=== PATIENT | female | born 1950 | race Caucasian/White ===

== ENCOUNTER → 2016-06-15 14:44 | Outpatient (CLI) | payer MEDICARE ==
[2016-05-23 09:51] VITALS: BMI 27.1
[~2016-06-15 14:44] MED LIST: BAYER CHEWABLE81 MG PO; BRILINTA90 MG PO; COMBIVENT RESPIM4 GM INH; FUROSEMIDE20 MG PO; HYDROCODON-ACE1 EAC6 PO; HYDROCODONE-APA1 TAB PO; IMDUR30 MG PO; K-DUR20 MEQ PO; LOPRESSOR25 MG PO; NORCO 10/325 TA1 TA1 PO; PLAVIX75 MG PO; PLETAL100 MG PO
== END | disposition home or self-care (01) ==
LOC: D.CT 14:30
DX: I73.9 Peripheral vascular disease, unspecified (principal); R60.0 Localized edema

== ENCOUNTER 2016-06-22 12:12 | Outpatient (CLI) | payer MEDICARE ==
[~2016-06-22] VITALS: Ht 157.5 cm; Wt 58.6 kg
[2016-06-22 15:42] VITALS: BP 101/46; Ht 157.5 cm; Wt 58.6 kg
--- NOTE | 2016-06-22 15:46 | NUR ---
1543 IV STARTED X 1 STICK BY BINA HERRMANN RN WITH 20 G TO RIGHT FOREARM. 1545 PRBC'S UNIT #1 STARTED VIA PUMP AFTER BEING CHECKED X 2 NURSES. PREMEDS HAVE BEEN GIVEN. PT INSTRUCTED ON SIGNS OF TRANSFUSION REACTION TO REPORT.
--- NOTE | 2016-06-22 16:46 | NUR ---
1615 RESP EVEN AND NONLABORED. BLOOD INFUSING VIA RT ARM NO REDNESS OR SWELLING,NO S/S OF BLOOD REACTIONS NOTED.
--- NOTE | 2016-06-22 16:51 | NUR ---
1650 SUPPER TRAY SERVED.
--- NOTE | 2016-06-22 17:50 | NUR ---
1715 BLOOD INFUSING WITHOUT S/S OF BLOOD REACTIONS. ROOM WARMED AND BLANKET APPLIED.
--- NOTE | 2016-06-22 19:18 | NUR ---
1810 V/S TAKEN BLOOD INFUSING WITHOUT S/S OF BLOOD REACTIONS NOTED. UP AND VOIDED.
--- NOTE | 2016-06-22 19:19 | NUR ---
1810 IN ROOM IV BEEPED,BLOOD COMPLETED AND FLUSHED WITH NORMAL SALINE.
--- NOTE | 2016-06-22 19:20 | NUR ---
2ND UNIT OF PRBCS HUNG AND CHECKED BY 2 NURSES. NEW BLOOD TUBING HUNG. BLOOD STARTED AT 75 CC/HR RT ARM NO REDNESS OR SWELLING.
--- NOTE | 2016-06-22 19:58 | NUR ---
1935 BLOD INFUSING WITHOUT S/S OF BLOOD REACTIONS NOTED.
--- NOTE | 2016-06-22 19:58 | NUR ---
1954 V/S STABLE 99.2 TEMP. RT ARM IV NO S/S OF BLOOD REACTIONS NOTED. UP TO THE BR AND VOIDED,NO SOB TOLERATING BLOOD.
--- NOTE | 2016-06-22 20:06 | NUR ---
2005 BLOOD INFUSING NO S/S OF BLOOD REACTION. REPORT TO JUVENTINO BERMUDEZ R.N. TO ROOM VIA W/C 1525 ALERT ORIENTED AND TALKATIVE.PATIENT TO FINISH LAST UNIT OF BLOOD AND STAY 1 HOUR AFTER AND BE DISCHARGED TO HOME.
--- NOTE | 2016-06-22 20:25 | NUR ---
RVCD PT FROM Caden BERMUDEZ RN FROM OUTPATIENT SERVICES. PT HAS PRBC TRANSFUSING VIA PUMP @ 125 ML/HR WITH APPROX 120 ML LEFT IN BAG. PT HAS NO S/S OF REACTION TO TRANSFUSION AT THIS TIME. PT REQUESTS TO REMAIN IN STREET CLOTHES. D/C PAPERS SIGNED PREVIOUS TO ARRIVAL ON L&D UNIT. PT DENIES NEEDS AT THIS TIME. BED LOW, CL IN REACH.
--- NOTE | 2016-06-22 21:05 | NUR ---
BLOOD TRANSFUSION COMPLETE. IV D/C'D AT THIS TIME. D/C PAPERS SIGNED & WITNESSED PER THIS RN. PT TO BATHROOM AND THEN BACK TO BED TO AWAIT D/C. DENIES NEEDS AT THIS TIME.
--- NOTE | 2016-06-22 21:20 | NUR ---
TO ROOM TO CHECK ON PT AND ROOM NOTED TO BE EMPTY. PT OFF UNIT UNANOUNCED TO STAFF.
== END 2016-06-22 21:15 | disposition home or self-care (01) ==
LOC: D.OPS 12:12 → D.LD 20:05 → D.OPS 21:15
DX: D50.9 Iron deficiency anemia, unspecified (principal); I25.10 Atherosclerotic heart disease of native coronary artery without angina pectoris; I10 Essential (primary) hypertension; J43.9 Emphysema, unspecified

== ENCOUNTER → 2016-08-09 14:09 | Outpatient (CLI) | payer MEDICARE ==
[2016-06-22 15:42] VITALS: BMI 23.6
[2016-08-09 17:52] LABS: ERYTHROCYTE SEDIMENTATION RATE 23 mm/hr (0-30)
[2016-08-11 08:23] LABS: IMMUNOGLOBULIN A 910 mg/dL (87-352); IMMUNOGLOBULIN G 1847 mg/dL (700-1600); IMMUNOGLOBULIN M 21 mg/dL (26-217)
[2016-08-11 10:20] LABS: IMMUNOGLOBULIN E 344 IU/mL (0-100)
[2016-08-11 13:20] LABS: ANA REFLEX - DIRECT Negative (Negative)
[2016-08-15 17:11] LABS: ANCA - ANTIMYELOPEROXIDASE <9.0 U/mL (0.0-9.0); ANCA - ANTIPROTEINASE 3 <3.5 U/mL (0.0-3.5); ANCA - ATYPICAL <1:20 titer (Neg:<1:20); ANCA - CYTOPLASMIC <1:20 titer (Neg:<1:20); ANCA - PERINUCLEAR <1:20 titer (Neg:<1:20)
== END | disposition home or self-care (01) ==
LOC: D.RT 08-04 14:00 → D.LAB 08-04 15:00 → D.CT 08-04 15:30 → D.RT 14:00
PROVIDERS: Internal Medicine Pulmonary Disease
DX: I50.9 Heart failure, unspecified (principal)

== ENCOUNTER 2016-08-30 13:54 | Outpatient (CLI) | payer MEDICARE ==
[~2016-08-30] VITALS: Ht 157.5 cm; Wt 58.6 kg
[2016-08-30 18:00] VITALS: BP 101/61; Ht 157.5 cm; Wt 58.6 kg
--- NOTE | 2016-08-30 18:03 | NUR ---
1700-POX 80% ON ROOM AIR, PT DENIES USING ANY O2 AT HOME AND STATED THAT SHE IS SOB AND THAT IS WHY SHE IS HERE TO GET BLOOD. PUT PATIENT ON 2L O2 VIA NC AND POX INCREASED TO 92-93% PT STATES THAT IS WHAT SHE STAYS AROUND. 1705-20 GAUGE IV STARTED IN RIGHT ARM X 1 STICK SECURED WITH TEGADERM AND WITHOUT DIFFICULTIES. 1710-PRBC UNIT #1 STARTED AND CHECKED WITH 2 RN'S 1725-PT TOLERATING BLOOD GOOD. REG DINNER TRAY SERVED AND PT DENIES ANY NEEDS AT THIS TIME. PT CALL LIGHT IN REACH
--- NOTE | 2016-08-30 18:08 | NUR ---
1755-PT DOING WELL, POX 94% ON 2L. INCREASED BLOOD TRANSFUSION TO 125CC/HR PT DOING WELL
--- NOTE | 2016-08-30 19:15 | NUR ---
1909-REPORT GIVEN TO JOSÉ MIGUEL ON MED 2. PT TRANSFERED TO 2103 VIA WHEELCHAIR IN STABLE CONDITION
--- NOTE | 2016-08-30 20:22 | NUR ---
PT RECEIVED FROM OUTPT VIA WHEELCHAIR AWAKE, ALERT, ORIENTED, WITH BLOOD TRANSFUSING. PT AMBULATED AND TRANSFERRED WITH MINIMAL ASSIST TO THE BED FROM THE WHEELCHAIR. PT DENIES ANY ACUTE NEEDS, IS IN NO ACUTE DISTRESS, AND STATES THAT SHE IS TOLERATING THE PRBC TRANSFUSION WELL. IV LASIX 40MG GIVEN ORDERED IN BETWEEN UNITS, 2ND UNIT HAS BEEN STARTED. V/S REMAIN STABLE. WILL CONTINUE TO MONITOR CLOSELY.
--- NOTE | 2016-08-30 23:26 | NUR ---
2 UNIT PRBC'S COMPLETE. D/C INSTRUCTIONS REVIEWED WITH PT. IV REMOVED WITH CATH TIP INTACT. PT IN NO ACUTE DISTRESS, STATES SHE HAS TOLERATED THE TRANSFUSION WELL, AND DENIES ANY OTHER NEEDS.
--- NOTE | 2016-08-30 23:48 | NUR ---
PT TAKEN TO ER EXIT VIA WHEELCHAIR WHERE SHE AMBULATED TO HER VEHICLE WITHOUT DIFFICULTY. PT VERBALLY DENIED ANY DIZZINESS, LIGHTHEADEDNESS, NAUSEA, CHEST PAIN, SHORTNESS OF BREATH OR ANY OTHER ISSUES.
== END 2016-08-30 23:50 | disposition home or self-care (01) ==
LOC: D.OPS 13:54 → D.M2 19:20 → D.OPS 23:50
DX: D50.0 Iron deficiency anemia secondary to blood loss (chronic) (principal); I50.9 Heart failure, unspecified; R06.00 Dyspnea, unspecified

== ENCOUNTER → 2016-10-12 08:45 | Outpatient (CLI) | payer MEDICARE ==
[2016-08-30 18:00] VITALS: BMI 23.6
--- NOTE | 2016-10-13 16:36 | EC ---
PATIENT:TIMBO HOPE DATE OF SERVICE: 10/12/16 SEX: F MEDICAL RECORD: [id number] DATE OF : [birth year] LOCATION:[facility] AGE OF PATIENT: 65 ADMISSION DATE: 10/12/16 REFERRING PHYSICIAN: INTERPRETING PHYSICIAN: ADY LOPEZ MD ECHOCARDIOGRAM REPORT ECHO CHARGES 4 ECHO COMPLETE CLINICAL DIAGNOSIS: CHF HX CAD/CABG/PVD ECHOCARDIOGRAPHIC MEASUREMENTS (adult normal given) AC root (d.<3.7cm) 3.1 LV Septum d (<1.2 cm> 1.1 Valve Excursion 1.4 LV Septum (systole) 1.4 Left Atria (s.<4.0cm> 4.1 LVPW d(<1.2cm) 1.5 RV (d.<2.3cm) 4.0 LVPW (sytole) 1.7 LV diastole(<5.6CM) 5.8 MV E-F(>70mm/sec) LV systole 4.5 LVOT Diameter 1.4 MV exc.(>10mm) 1.2 Est.ejection fraction (50-75%) Pericardial Effusion N DOPPLER: LVIT A 118 E 145 LA RVSP 49 LVOT 137 AOP1/2T Asc. Ao 329 RVOT 126 RA PA 169 AV Gradient Peak 43.22 AV Mean 18.32 AV Area 1.0 MV Gradient Peak 13.79 MV Mean 5.67 MV Area COMMENTS: Housekeeping Assistant: Hayden JOLLY Traffic Law Attorney:Hayden Jackson TAPE# PACS DATE OF SERVICE: 10/12/2016 FINDINGS: 1. Left ventricular chamber size is within normal limits. Left ventricular systolic function is normal. Overall ejection fraction estimated at ____. 2. Left atrium is enlarged at 4.1 cm. Right atrium and right ventricular chamber sizes are as well mildly dilated. 3. Valvular structures: Aortic valve demonstrates moderate calcific aortic stenosis. Valve area calculates to 1.0 cm-squared and there is a gradient of 43 mm across the valve. The remaining valvular structures have normal structure ECHOCARDIOGRAM REPORT [id number] TIMBO HOPE and motion. 4. Doppler interrogation elsewise reveals moderate mitral regurgitation, mild tricuspid regurgitation. No other valvular insufficiency or stenosis; however, pulmonary systolic pressure is elevated estimated at 49 mmHg. 5. No evidence of pericardial effusion or left ventricular thrombus. TRANSINT:[id number] Voice Confirmation ID: [id number] DOCUMENT ID: [id number] ADY LOPEZ MD at 1636 CC: [id number] DICTATION DATE: 10/12/16 162 REVIEW APPRAISER: 10/13/16 0213 DEP CLI 10/12/16 [place] [id number] [place] [id number]
== END | disposition home or self-care (01) ==
LOC: D.ECHO 08:45
DX: I50.9 Heart failure, unspecified (principal)

== ENCOUNTER 2017-04-18 13:48 | Inpatient (IN) | payer MEDICARE ==
[~2017-04-18] VITALS: Ht 157.5 cm; Wt 66.4 kg
--- NOTE | ~2017-04-18 | HEMODYNAMI ---
PATIENT:TIMBO HOPE MEDICAL RECORD: [id number] : [birth year] LOCATION:[facility] [address] [facility]# [id number] ADMISSION DATE: 04/18/17 Generatedon:04/20/201717:01 Patient name: TIMBO HOPE Patient #: [id number] SSN: : 1950 Date of study: 04/20/2017 Page: Of Hemodynamic Procedure Report Patient Data Patient Demographics Procedure consent was obtained First Name: TIMBO Gender: Female Last Name: JAYY : 1950 [facility] Initial: LITZY Age: 66 year(s) Patient #: [id number] Race: Unknown Additional ID: [id number] Contact details [address]: [address] [place] [address] State: [place] City: [place] Zip code: [address] Past Medical History Allergies Allergen Reaction Date Comments Reported Other allergy 04/20/2017 SULFA, ROSUVASTATIN, CEPHALEXIN MONOHYDRATE, PCN Other allergy 04/20/2017 SULFA, ROSUVASTATIN,PCN, CEPHALEXIN MONOHYDRATE Admission Admission Data Admission Date: 04/18/2017 Admission Time: 13:48 Room #: [facility]8 Weight (lbs.): 145.51 Weight (kg.): 66 Lab Results Lab Result Date: 04/20/2017 Lab Result Time: 0:00 Biochemistry Name Units Result Min Max BUN mg/dl 15 --(--*-)-- 7 18 Creatinine mg/dl 0.9 --(-*--)-- 0.6 1.3 CBC Name Units Result Min Max Hemoglobin g/dl 10 *-(----)-- 13.5 17.5 Procedure Procedure Types Cath Procedure Diagnostic Procedure [facility] w/Coronaries w/Grafts FFR/IVUS Intra-Coronary IVUS Initial PCI Procedure AMI/SVG/SERVICE LEARNING COORDINATOR PTCA or Stent SVG-BMS/LUISA Initial Miscellaneous Procedures Moderate Sedation up to 30 minutes Procedure Description Procedure Date Procedure Date: 04/20/2017 Procedure Start Time: 16:34 Procedure End Time: 16:58 Procedure Staff Name Function Ryan Braun MD Performing Physician Hipolito Burgess RT Monitor Nilsa Whitt RT Scrub Jenn Curtis RN Nurse Timur Rudolph RN Nurse Procedure Data Cath Procedure Fluoroscopy Diagnostic fluoroscopy Total fluoroscopy Time: 5.3 time: 5.3 min min Diagnostic fluoroscopy Total fluoroscopy dose: 475 dose: 475 mGy mGy Contrast Material Contrast Material Type Amount (ml) Isovue 300 124 Entry Location Entry Primary Successful Side Size Upsize Upsize Entry Closure Succes sful Closure Location (Fr) 1 (Fr) 2 (Fr) Remarks Device Remarks Femoral Right 5 Fr 6 Fr Exoseal artery Short Estimated blood loss: 10 ml Diagnostic catheters Device Type Used For End Catheter Placement Cordis 5Fr Pigtail Procedure Catheter (MP) Cordis 5Fr JL 4.0 Procedure Catheter (MP) Cordis 5Fr 3DRC Catheter Procedure (MP) Diagnostic Infinity 5Fr Procedure AR 2 MOD catheter Procedure Complications No complications Procedure Medications Medication Administration Route Dosage 0.9% NaCl I.V. 100 ml/hr Oxygen NC 2 l/min Lidocaine 2% added to field 20 Heparin Flush Bag added to field 2 bags (1000units/500ml NS) Fentanyl I.V. 50 mcg Versed I.V. 1 mg Versed I.V. 1 mg Fentanyl I.V. 50 mcg Fentanyl I.V. 50 mcg Versed I.V. 1 mg Heparin Bolus I.V. 4000 units Integrilin (Bolus I.V. 6.2 ml 2mg/ml) Cardene I.C. 300 mcg Plavix P.O. 600 mg Hemodynamics Rest HGB: 10 (g/dl) Heart Rate: 80 (bpm) Snapshots Pre Cath Intra NCS Post Cath Vital Signs Time Heart Resp SPO2 etCO2 NIBP Rhythm Pain Sedation Rate (ipm) (%) (mmHg) (mmHg) Status Level (bpm) 16:19:10 105 18 98 0 109/53(70) NSR 0 (11) 10(A) , No pain 16:23:46 89 14 98 9.6 101/42(65) NSR 0 (11) 10(A) , No pain 16:28:23 92 16 93 100/46(69) NSR 0 (11) 10(A) , No pain 16:33:01 91 14 93 35 86/39(69) NSR 0 (11) 10(A) , No pain 16:37:38 93 14 94 31.2 98/43(72) NSR 0 (11) 10(A) , No pain 16:42:14 92 14 94 20.1 103/45(74) NSR 0 (11) 9(A) , No pain 16:46:53 92 13 93 29 104/44(77) NSR 0 (11) 10(A) , No pain 16:51:27 83 14 94 29.8 94/50(70) NSR 0 (11) 10(A) , No pain Medications Time Medication Route Dose Verified Delivered Reason Notes Effectiveness by by 16:05:23 0.9% NaCl I.V. 100 Ryan Jenn used for ml/hr Kade Curtis RN procedure 16:05:40 Oxygen NC 2 Ryan Jenn used for l/min Kade Curtis RN procedure 16:05:54 Lidocaine 2% added 20ml Ryan Ryan for local to vial Kade Braun MD anesthetic field 16:06:14 Heparin Flush added 2 bags Ryan Ryan used for Bag to Kade Braun MD procedure (1000units/500ml field NS) 16:32:32 Fentanyl I.V. 50 mcg Ryan Jenn for sedation Kade Curits RN 16:32:43 Versed I.V. 1 mg Ryan Jenn for sedation Kade Curtis RN 16:34:37 Versed I.V. 1 mg Ryan Jenn for sedation Kade Curtis RN 16:34:48 Fentanyl I.V. 50 mcg Ryan Jenn for sedation Kade Curtis RN 16:41:07 Fentanyl I.V. 50 mcg Ryan Jenn for sedation Kade Curtis RN 16:41:15 Versed I.V. 1 mg Ryan Jenn for sedation Kade Curtis RN 16:46:13 Heparin Bolus I.V. 4000 Ryan Jenn for verif ied units Kade Curtis RN anticoagulation by 16:48:53 Integrilin I.V. 6.2 ml Ryan Jenn for waste d (Bolus 2mg/ml) Kade Curtis RN antiplatelet 3.8 ml therapy of viAl 16:49:28 Cardene I.C. 300mcg Ryan Davis for verif ied Kade Braun MD vasodilation by 16:54:44 Plavix P.O. 600 mg Ryan Barajas Per physician Kade Curtis cylinder devalver Log Time Note 15:50:52 Hipolito Croftley RT(R) sent for patient. Start room use. 16:04:14 Patient Weight : 145.51 lbs 16:04:53 Time tracking: Regular hours 16:04:57 Plan of Care:Hemodynamics will remain stable., Cardiac rhythm will remain stable., Comfort level will be maintained., Respiratory function will remain adequate., Patient/ family verbilizes understanding of procedure., Procedure tolerated without complication., Recovers from procedure without complications.. 16:05:23 0.9% NaCl 100 ml/hr I.V. was administered by Jenn Curtis RN; used for procedure; 16:05:40 Oxygen 2 l/min NC was administered by Jenn Curtis RN; used for procedure; 16:05:45 Lab results completed and on chart. 16:05:54 Lidocaine 2% 20ml vial added to field was administered by Ryan Braun MD; for local anesthetic; 16:06:14 Heparin Flush Bag (1000units/500ml NS) 2 bags added to field was administered by Ryan Braun MD; used for procedure; 16:08:10 Patient allergic to Other allergySULFA, ROSUVASTATIN,PCN, CEPHALEXIN MONOHYDRATE 16:12:43 Patient received from Med II to CCL 1 Alert and oriented. Tansferred to table in Supine position. 16:12:49 Warm blankets applied, and luz hugger turned on for patient comfort. 16:12:49 Correct patient and procedure confirmed by team. 16:12:50 ECG and BP/O2 sat monitors applied to patient. 16:12:51 Signed procedure consent form obtained from patient. 16:18:19 Vital chart was started 16:22:32 Baseline sample Acquired. 16:22:36 Rhythm: sinus rhythm 16:22:39 Full Disclosure recording started 16:22:43 H&P Date Dictated: 04/20/2017 Within 30 days and on chart.. 16:22:43 Pre-procedure instructions explained to patient. 16:22:44 Pre-op teaching completed and patient verbalized understanding. 16:22:46 Family in patients room. 16:22:47 Patient NPO since Midnight. 16:22:50 Is the patient allergic to Iodine/contrast media? No. 16:22:52 Is patient on blood thinner?No 16:22:54 Patient diabetic? No. 16:22:57 Patient not . Patient is over age 54. 16:22:59 Previous problem with sedation/anesthesia? No ? 16:23:00 Snore? Yes 16:23:01 Sleep apnea? No 16:23:02 Deviated septum? No 16:23:02 Opens mouth fully? Yes 16:23:03 Sticks out tongue? Yes 16:23:06 Airway obstruction? No ? 16:23:10 Dentures? Yes IN 16:23:24 Pre procedure: right dorsailis pedis pulse 1+ Palpable, but thready & weak; easily obliterated 16:23:28 Patient pain scale 0/10 ?. 16:23:35 IV patent on arrival in right hand with 0.9% NaCl at [facility]. 16:23:40 Right groin area was prepped with chlora-prep and draped in sterile fashion 16:23:41 Alarms reviewed by R. N. 16:23:42 Sharps counted by scrub and verified by R.N. 16:23:52 Use device set Femoral Dx 16:23:55 Tegaderm 4 x 4 opened to sterile field. 16:23:56 Acist Hand Control opened to sterile field. 16:23:56 Acist Manifold opened to sterile field. 16:23:57 Acist Syringe opened to sterile field. 16:23:58 Bag Decanter opened to sterile field. 16:23:58 Medline Cath Pack opened to sterile field. 16:24:04 Terumo 5Fr [place] Sheath opened to sterile field. 16:24:04 St Diego 260cm J .035 wire opened to sterile field. 16:24:06 Diagnostic Infinity 5Fr Multipack catheter opened to sterile field. 16:26:24 Cook 18G 7cm Percutaneous Entry needle opened to sterile field. 16:26:34 --------ALL STOP TIME OUT------ 16:26:35 Final Timeout: patient, procedure, and site verified with staff and physician. All members of the team are in agreement. 16:26:37 Right groin site verified by team. 16:26:40 Physical assessment completed. ASA score P 2 - A patient with mild systemic disease as per Ryan Braun MD. 16::44 Sedation plan: IV Moderate Sedation Medication:Versed, Fentanyl 16:32:32 Fentanyl 50 mcg I.V. was administered by Jenn Curtis RN; for sedation; 16:32:43 Versed 1 mg I.V. was administered by Jenn Curtis RN; for sedation; 16:34:07 Procedure started. 16:34:14 Local anesthetic to right femoral artery with Lidocaine 2% by Ryan Braun MD.INITIAL ACCESS ONLY 16:34:37 Versed 1 mg I.V. was administered by Jenn Curtis RN; for sedation; 16:34:47 A 5 Fr sheath was inserted into the Right Femoral artery 16:34:48 Fentanyl 50 mcg I.V. was administered by Jenn Curtis RN; for sedation; 16:35:09 A Cordis 5Fr Pigtail Catheter (MP) was advanced over the wire and used for Procedure. 16:36:02 LV angiography performed. 16:36:04 LV gram done using MORRIS 16:36:10 EF : 50 % 16:36:15 Injector settings: Ml/sec: 10, Volume: 20, 16:36:20 Catheter removed. 16:36:25 A Cordis 5Fr JL 4.0 Catheter (MP) was advanced over the wire and used for Procedure. 16:37:11 LCA closed. 16:37:27 Catheter removed. 16:37:32 A Cordis 5Fr 3DRC Catheter (MP) was advanced over the wire and used for Procedure. 16:38:25 BISHOP not grafted. 16:38:36 RCA closed. 16:38:40 Catheter removed. 16:38:45 A Diagnostic Infinity 5Fr AR 2 MOD catheter was advanced over the wire and used for Procedure. 16:39:56 SVG to LAD angiography performed. 16:40:12 Also a skip graft to CIRC. 16:41:07 Fentanyl 50 mcg I.V. was administered by Jenn Curtis RN; for sedation; 16:41:14 SVG to RCA angiography performed. 16:41:15 Versed 1 mg I.V. was administered by Jenn Curtis RN; for sedation; 16:41:31 Catheter removed. 16:41:44 Medtronic Launcher 6Fr AR 2.0 guide catheter opened to sterile field. 16:41:45 Terumo 6Fr [place] Sheath opened to sterile field. 16:41:54 Sheath upsized to a 6 Fr Short. 16:42:00 6 Fr AR 2 guide catheter was inserted over the wire 16:42:38 Guide advanced to get a better picture of the SVG to RCA. 16:44:30 SVG to RCA angiography performed. 16:44:57 Gould Pocket Change Card Choice PT Extra Support 182cm wire opened to sterile field. 16:44:58 Merit BasixCompak Inflation Kit opened to sterile field. 16:44:58 [place] [employer] [place] IVUS Catheter opened to sterile field. 16:45:13 Choice PT XS wire advanced. 16:46:13 Heparin Bolus 4000 units I.V. was administered by Jenn Curtis RN; for anticoagulation; verified by 16:46:28 Wire advanced across lesion. 16:46:49 IVUS catheter advanced over wire. 16:48:53 Integrilin (Bolus 2mg/ml) 6.2 ml I.V. was administered by Jenn Curtis RN; for antiplatelet therapy; wasted 3.8 ml of viAl 16:49:15 IVUS pass to the SVG to RCA lesion performed. 16:49:17 IVUS catheter removed over wire. 16:49:28 Cardene 300mcg I.C. was administered by Ryan Braun MD; for vasodilation; verified by 16:50:26 Inflation number: 1 A Medtronic Integrity Rx 4.0 x 22 stent was prepped and advanced across the Aorta Right -> Mid RCA, then inflated to 19 HINA for 0:10 (min:sec). 16:50:32 Stent catheter was removed intact over wire. 16:50:33 Wire removed. 16:50:33 Guide catheter removed. 16:50:54 Cordis 6Fr Exoseal opened to sterile field. 16:51:30 Sheath removed intact; hemostasis achieved with Exoseal to the Right Femoral artery. 16:51:38 Procedure ended.(Physican Out) 16:51:53 Fluoroscopy time 05.30 minutes. 16:51:57 Fluoroscopy dose: 475 mGy 16:51:57 Flurop Dose total: 475 16:52:05 Contrast amount:Isovue 300 124ml. 16:52:10 Sharps counted by scrub and verified by R.N. 16:52:11 Insertion/operative site no bleeding no hematoma. 16:52:21 Post-op/insertion site Right Femoral artery dressed using a 4 x 4 and Tegaderm. 16:52:23 Post Procedure Pulses reassessed and unchanged 16:52:25 Post-procedure physical assessment completed. ASA score P 2 - A patient with mild systemic disease as per Ryan Braun MD. 16:52:28 Post procedure rhythm: unchanged. 16:52:31 Estimated blood loss: 10 ml 16:52:33 Post procedure instruction explained to patient.Patient verbalizes understanding. 16:52:34 Patient needs reinforcement of post procedure teaching. 16:53:02 Procedure type changed to Cath procedure, Diagnostic procedure, LHC, LHC w/Coronaries w/Grafts, FFR/IVUS, Intra-Coronary IVUS Initial, PCI procedure, AMI/SVG/SERVICE LEARNING COORDINATOR PTCA or Stent, SVG-BMS/LUISA Initial, Miscellaneous Procedures, Moderate Sedation up to 30 minutes 16:53:07 Procedure Complication : No complications 16:54:44 Plavix 600 mg P.O. was administered by Jenn Curtis RN; Per physician; 16:58:09 Procedure and supply charges have been captured, reviewed, submitted and are correct. 16:58:10 Vital chart was stopped 16:58:10 See physician's report for complete and final results. 16:58:12 Report given to PCU. 16:58:14 Patient transfered to PCU with Bed. 16:58:16 Procedure ended. 16:58:16 Full Disclosure recording stopped 16:58:19 End room use (Document Last) Intervention Summary Intervention Notes Time ActionType Lesion and Equipment Action# Pressure Duration Attributes Used 16:50:26 Inflate Aorta Right Medtronic 1 19 00:10 balloon -> Mid RCA Integrity Rx 4.0 x 22 stent Device Usage Item Name Manufacture Quantity Catalog Number Hospital Part Current Mini mal Lot# / Charge Number Stock Stock Serial# Code Tegaderm 4 x 3M 1 1626W [id number] 663962 596801 5 4 Acist Hand Acist 1 03000 146641 844274 363576 5 Interview Acist Acist 1 20216 977090 308025 426704 5 bOombate Inc Acist Acist 1 47795 687091 720418 948808 20 Syringe Medical Systems Inc Bag Decanter Microtek 1 2002S 732504 27214 498199 5 Medical Inc. Medline Cath Cardinal 1 [id number] 224307 13702 291407 5 Pack Health Terumo 5Fr Terumo 1 DAH655 996839 696410 986801 [address] Diego 1 315784 039877 340870 650289 30 260cm J .035 wire Diagnostic Cardinal 1 TY5028 939513 37106 000654 30 Infinity 5Fr Health Multipack catheter Cook 18G 7cm [facility] 1 [id number] 938095 35217 624739 5 Percutaneous Entry needle Cordis 5Fr Cardinal 1 103876 5 Pigtail Health Catheter (MP) Cordis 5Fr Cardinal 1 692873 5 JL 4.0 Health Catheter (MP) Cordis 5Fr Cardinal 1 100118 5 3DRC Health Catheter (MP) Diagnostic Cardinal 1 [id number] 520060 217662 342921 20 Infinity 5Fr Health AR 2 MOD catheter Medtronic Medtronic 1 [id number] 280985 36144 616821 1 Launcher 6Fr AR 2.0 guide catheter Terumo 6Fr Terumo 1 [id number] 952284 795033 518414 40 [place] Sheath Gould Sci Gould 1 [id number] 122912 658475 321178 5 Choice PT Scientific Extra Support 182cm wire Merit Merit 1 BT7865 101429 606707 785462 15 [facility] Medical Inflation Kit [place] 1 [id number] 458788 481730 339953 8 Match-[employer] IVUS Catheter Medtronic Medtronic 1 [id number] 514938 987159 801559 5 [id number] Integrity Rx 4.0 x 22 stent Cordis 6Fr Cardinal 1 EX600 505099 516226 970147 10 Life With Linda Signature [place] Stage Time Signature Unsigned Intra-Procedure 04/20/2017 Hipolito Burgess 5:01:17 PM RT(R) Signatures Monitor : Hipolito Burgess RT Signature : Date : Time : [facility] [address] [place] [address]
[2017-04-18 14:45] VITALS: BP 108/36; Ht 157.5 cm; Wt 66.4 kg
[2017-04-18] MEDS ORDERED: SINGULAIR10 MG PO (14:45)
[2017-04-18] MEDS ORDERED: METOLAZONE2.5 MG PO (14:45)
--- NOTE | 2017-04-18 15:16 | NUR ---
ADMISSION COMPLETED AND PT SITTING UP IN BED RESTING QUIETLY. PT CURRENTLY HAS NO SOB OR CP. EKG COMPLETED AND PLACED IN CHART ORDERED. PT A&O AND HAS AT BEDSIDE. 20 GUAGE PIV INSERTED INTO R.FA [id number], DRSG CDI, DATED AND SWAB CAPS IN USE. WAITING ON TELEMETRY AND WILL APPLY WHEN AVAILABLE. PT DENIES ANY CURRENT PAIN OR NEEDS AT THIS TIME. WILL CPOC.
[2017-04-18 15:27] VITALS: BP 108/36
[2017-04-18 17:11] LABS: BASOPHILS 0.2 % (0-2); EOSINOPHILS 1.4 % (0-7); HEMATOCRIT 29.9 % (36.0-48.0); HEMOGLOBIN 9.7 g/dL (12-16); IMMATURE GRANULOCYTES 0.2 % (0-5); MCH 31.9 pg (26.0-34.0); MCHC 32.4 g/dL (31.0-37.0); MCV 98.4 fL (80.0-100.0); MEAN PLATELET VOLUME 9.2 fL (7.4-10.4); MONOCYTES 12.2 % (2-11); PLATELET COUNT 132 10x3/uL (130-400); RBC 3.04 10x6/uL (4.00-5.40); RDW 14.8 % (11.5-14.5); WBC 5.7 10x3/uL (4.8-10.8)
--- NOTE | 2017-04-18 17:55 | NUR ---
CONSENTS OBTAINED FOR HEART CATH TOMORROW AND PROCEDURE EXPLAINED PT VERY FAMILAR. NPO AFTER MIDNIGHT SIGN IN PLACE AND PT VERBALIZED UNDERSTANDING. NO FURTHER NEEDS AT THIS TIME, CL IN REACH, BED IN LOWEST, SIDE RAILS X2. WILL CPOC.
[2017-04-18 18:00] LABS: CALC OSMOLALITY 281 mosm/kg (275-300); CARBON DIOXIDE 24.4 mmol/L (21.0-32.0); CHLORIDE - SERUM 104 mmol/L (98-107); CKMB 1.3 U/L (0.0-3.6); CREATINE KINASE 127 UL (21-215); CREATININE - SERUM 1.1 mg/dL (0.6-1.3); GLUCOSE 104 mg/dL (74-106); POTASSIUM - SERUM 3.9 mmol/L (3.5-5.1); PRO BNP 996 pg/mL (0-125); SODIUM 140 mmol/L (136-145); UREA NITROGEN 20 mg/dL (7-18); eGFR NON AFRICAN AMERICAN 52 mL/min (90-120)
[2017-04-18 18:09] LABS: TROPONIN-I 0.097 ng/mL (0.000-0.060)
[2017-04-18 20:00] VITALS: BP 107/55
[2017-04-19] VITALS (13 sets, daily range): BP systolic 92–132; BP diastolic 35–60
[2017-04-19 00:18] LABS: CKMB 1.4 U/L (0.0-3.6); CREATINE KINASE 111 UL (21-215); TROPONIN-I 0.101 ng/mL (0.000-0.060)
--- NOTE | 2017-04-19 02:31 | NUR ---
NURSE ROUNDS 22:00 04/18/17 - PT LYING IN BED, AWAKE, ALERT, ORIENTED, DENIES ANY CHEST PAIN, HOWEVER DID HAVE SOME BACK DISCOMFORT/PAIN R/T BED PER PT. PT DENIES ANY OTHER NEEDS. CONTINUE TO MONITOR CLOSELY. BED LOW, CALL LIGHT IN REACH, SIDE RAILS X 2, HOB 25-30 DEGREES. PT IS UP AD DARRELL, AND HAS VERBALLY AGREED TO CALL WITH ANY NEEDS OR ASSISTANCE.
[2017-04-19 05:49] LABS: BASOPHILS 0.2 % (0-2); EOSINOPHILS 2.6 % (0-7); HEMATOCRIT 26.5 % (36.0-48.0); HEMOGLOBIN 8.4 g/dL (12-16); IMMATURE GRANULOCYTES 0.2 % (0-5); LYMPHOCYTES 36.2 % (15-50); MCHC 31.7 g/dL (31.0-37.0); MCV 97.8 fL (80.0-100.0); MONOCYTES 10.6 % (2-11); NEUTROPHILS 50.2 % (40-80); PLATELET COUNT 113 10x3/uL (130-400); RBC 2.71 10x6/uL (4.00-5.40); RDW 15.1 % (11.5-14.5); WBC 4.3 10x3/uL (4.8-10.8)
[2017-04-19 06:24] LABS: CALC OSMOLALITY 278 mosm/kg (275-300); CALCIUM 8.9 mg/dL (8.5-10.1); CARBON DIOXIDE 26.3 mmol/L (21.0-32.0); CHLORIDE - SERUM 102 mmol/L (98-107); CKMB 1.1 U/L (0.0-3.6); CREATINE KINASE 109 UL (21-215); GLUCOSE 119 mg/dL (74-106); POTASSIUM - SERUM 3.7 mmol/L (3.5-5.1); SODIUM 138 mmol/L (136-145); UREA NITROGEN 18 mg/dL (7-18); eGFR NON AFRICAN AMERICAN 58 mL/min (90-120)
[2017-04-19 06:28] LABS: TROPONIN-I 0.094 ng/mL (0.000-0.060)
--- NOTE | 2017-04-19 13:25 | NUR ---
PT PRBC'S STARTED. PT VS STABLE. PT DENIES NEEDS AT THIS TIME.
--- NOTE | 2017-04-19 14:10 | NUR ---
PT BP DROPPING ON MACHINE. BP TAKEN MANUALLY 132/48. WILL CONTINUE TO TAKE MANUAL BP'S.
--- NOTE | 2017-04-19 15:55 | NUR ---
PT PRBC'S COMPLETED. PT TOLERATED WELL, DENIES NEEDS.
--- NOTE | 2017-04-19 18:00 | NUR ---
PT RECEIVING SECOND UNIT PRBC. PT TOLERATING WELL, VS REMAIN STABLE. WCTM.
--- NOTE | 2017-04-20 02:08 | NUR ---
CALL LIGHT IN REACH, WILL CONTINUE WITH PLAN OF CARE. 72 SR ON TELEMETRY
[2017-04-20 02:20] VITALS: BP 79/31
--- NOTE | 2017-04-20 04:40 | NUR ---
PT RESTING COMFORTABLY, STATED SHE IS NOT FEELING WELL SHE USUALLY DOES AFTER RECEIVING BLOOD. PT STATES SHE DID HAVE CHEST PAIN AGAIN DURING DAY SHIFT YESTERDAY. NO NEEDS, CONTINUE TO MONITOR CLOSELY. BED LOW, CALL LIGHT IN REACH, SIDE RAILS X 2, HOB 30 DEGREES.
[2017-04-20 05:18] VITALS: BP 106/34
[2017-04-20 06:38] LABS: BASOPHILS 0.2 % (0-2); EOSINOPHILS 4.1 % (0-7); HEMATOCRIT 30.7 % (36.0-48.0); IMMATURE GRANULOCYTES 0.2 % (0-5); LYMPHOCYTES 26.7 % (15-50); MCH 30.6 pg (26.0-34.0); MCHC 32.6 g/dL (31.0-37.0); MEAN PLATELET VOLUME 8.9 fL (7.4-10.4); MONOCYTES 12.2 % (2-11); NEUTROPHILS 56.6 % (40-80); PLATELET COUNT 106 10x3/uL (130-400); WBC 5.1 10x3/uL (4.8-10.8)
[2017-04-20 06:47] LABS: MCV 93.9 fL (80.0-100.0); RBC 3.27 10x6/uL (4.00-5.40)
[2017-04-20 06:50] LABS: ANION GAP 11.3 mmol/L (8-16); CALCIUM 8.7 mg/dL (8.5-10.1); CARBON DIOXIDE 27.7 mmol/L (21.0-32.0); CREATININE - SERUM 0.9 mg/dL (0.6-1.3)
[2017-04-20 08:38] VITALS: BP 113/40
[2017-04-20 12:00] VITALS: BP 92/40
--- NOTE | 2017-04-20 14:14 | EC ---
PATIENT:TIMBO HOPE DATE OF SERVICE: 04/18/17 SEX: F MEDICAL RECORD: [id number] DATE OF : [birth year] LOCATION:D.M2 D.213 AGE OF PATIENT: 66 ADMISSION DATE: 04/18/17 REFERRING PHYSICIAN: INTERPRETING PHYSICIAN: ADY LOPEZ MD ECHOCARDIOGRAM REPORT ECHO CHARGES 4 ECHO COMPLETE CLINICAL DIAGNOSIS: CHEST PAIN, EMPHYSEMA HX OF CAD/CABG ECHOCARDIOGRAPHIC MEASUREMENTS (adult normal given) AC root (d.<3.7cm) 3.4 cm LV Septum d (<1.2 cm> 1.5 cm Valve Excursion 1.2 cm LV Septum (systole) 1.6 cm Left Atria (s.<4.0cm> 4.2 cm LVPW d(<1.2cm) 1.5 cm RV (d.<2.3cm) 4.4 cm LVPW (sytole) 1.6 cm LV diastole(<5.6CM) 4.7 cm MV E-F(>70mm/sec) cm LV systole 3.3 cm LVOT Diameter 1.3 cm MV exc.(>10mm) 1.9 cm Est.ejection fraction (50-75%) % Pericardial Effusion N DOPPLER: LVIT cm/sec A 151 cm/sec E 130 cm/sec LA cm/sec RVSP 45 mmHg LVOT 201 cm/sec AOP1/2T m/s Asc. Ao 329 cm/sec RVOT 13 cm/sec RA cm/sec PA 197 cm/sec AV Gradient Peak 43.18mmHg AV Mean 22.98mmHg AV Area 0.7 cm MV Gradient Peak 13.53mmHg MV Mean 6.54 mmHg MV Area cm COMMENTS: Usability Engineer: Hayden JOLLY Loan Collector: 2 Dr. Jackson TAPE# PACS DATE OF SERVICE: 04/19/2017 PROCEDURE: Echocardiogram. FINDINGS: 1. Left ventricle chamber size is within normal limits. Left ventricular systolic function is normal. Overall ejection fraction estimated at 55%. 2. The left atrium is mildly dilated. Right atrium and right ventricular chamber sizes are moderately dilated. 3. Valvular structures: Aortic valve demonstrates moderate calcific aortic ECHOCARDIOGRAM REPORT [id number] TIMBO HOPE stenosis. Valve area calculates to 0.7 cm-squared and there is gradient of 43 mm across the valve. The remaining valvular structures have normal structure and motion. 4. Doppler interrogation else santiago reveals [id number] mitral regurgitation, mild to moderate tricuspid regurgitation, no other valvular insufficiency or stenosis. Pulmonary systolic pressure is mildly elevated, estimated at 45 mmHg. 5. No evidence of pericardial effusion or left ventricular thrombus. TRANSINT:[id number] Voice Confirmation ID: [id number] DOCUMENT ID: [id number] ADY LOPEZ MD at 1414 CC: [id number] DICTATION DATE: 04/20/17 1102 KELP GATHERER: 04/20/17 1150 ADM IN [facility] [address] [place] [id number]
[2017-04-20 16:40] VITALS: BP 117/45
--- NOTE | 2017-04-20 17:10 | NUR ---
RETURN TO FLOOR FROM HAVING STENT PLACED. IS ALERT AND ORIENTED X4. C/O MILD DISCOMFORT TO RT GROIN. DENIES CHEST PAIN. V/S LOW AT 72/43,98,19,98.0. TELEMETRY REPLACED. IS TO LAY FLAT FOR 4 HRS. RT HIP MONITORED FOR BLEEDING. NONE NOTED. RT HIP HAS GAUZE AND OCCLUSIVE DRESSING OVER PUNCTURE SITE.
--- NOTE | 2017-04-20 17:43 | NUR ---
B/P 101/59, 68
--- NOTE | 2017-04-20 20:11 | NUR ---
PT IN BED RESTING QUIETLY. DENIES ANY PAIN OR NEEDS AT THIS TIME. LAYING FLAT IN BED. BED IN LOW POSITION, CALL LIGHT WITHIN REACH.
[2017-04-20 22:40] VITALS: BP 102/35
[2017-04-21 02:08] VITALS: BP 97/56
[2017-04-21 05:08] LABS: BASOPHILS 0.2 % (0-2); EOSINOPHILS 3.1 % (0-7); HEMATOCRIT 31.8 % (36.0-48.0); HEMOGLOBIN 10.2 g/dL (12-16); IMMATURE GRANULOCYTES 0.2 % (0-5); LYMPHOCYTES 16.3 % (15-50); MCH 30.4 pg (26.0-34.0); MCHC 32.1 g/dL (31.0-37.0); MCV 94.9 fL (80.0-100.0); MEAN PLATELET VOLUME 9.1 fL (7.4-10.4); MONOCYTES 8.5 % (2-11); NEUTROPHILS 71.7 % (40-80); PLATELET COUNT 108 10x3/uL (130-400); RBC 3.35 10x6/uL (4.00-5.40); RDW 17.8 % (11.5-14.5); WBC 4.5 10x3/uL (4.8-10.8)
[2017-04-21 05:25] LABS: ANION GAP 12.1 mmol/L (8-16); CALCIUM 8.6 mg/dL (8.5-10.1); CARBON DIOXIDE 26.8 mmol/L (21.0-32.0); CREATININE - SERUM 0.9 mg/dL (0.6-1.3); POTASSIUM - SERUM 3.9 mmol/L (3.5-5.1)
[2017-04-21 06:37] VITALS: BP 111/57
[2017-04-21] MEDS ORDERED: BRILINTA90 MG PO (06:55)
--- NOTE | 2017-04-21 07:51 | NUR ---
PATIENT IS ALERT/ORIENT X4. CALL LIGHT WITHIN REACH. DR. CABRERA INTO SEE PATIENT. NEW ORDERS TO DISCHARGE TO HOME TODAY.
[2017-04-21 08:00] VITALS: BP 110/48
--- NOTE | 2017-04-21 09:00 | NUR ---
BLOOD PRESURE MEDICATION HELD FOR LOW BLOOD PRESURE
--- NOTE | 2017-04-21 11:31 | NUR ---
CALL TO DR MCWILLIAMS RE BRILINTA DOSAGE. ORDER RECEIVED FOR BRILINTA 90mg PO BID, WITH 1st DOSE TO BE GIVEN NOW AND MONITOR FOR TOLERANCE. IF TOLERATED, MAY DISCHARGE HOME WITH 30 DAY Rx.
[2017-04-21 12:00] VITALS: BP 108/40
--- NOTE | 2017-04-21 13:53 | NUR ---
RIGHT FOREARM SALINE LOCK REMOVED. PATIENT TO BE DISCHARGED TODAY
--- NOTE | 2017-04-21 14:34 | NUR ---
DISCHARGE INSTUCTIONS GIVEN TO PATIENT. PATIENT STATES UNDERSTANDING OF DISCHARGE INSTRUCTIONS. TELEMETRY REMOVED FROM PATIENT.
--- NOTE | 2017-04-21 15:24 | NUR ---
RESPITORY THERPIST IN ROOM. GIVING PATIENT A DUONEB TX
--- NOTE | 2017-04-21 15:46 | NUR ---
PATIENT HELPED OUT TO CAR BY NURSING STAFF
--- NOTE | 2017-04-30 09:02 | OP ---
PATIENT NAME: TIMBO HOPE MEDICAL RECORD: [id number] :48 LOCATION:D.M2 D.2138 ADMISSION DATE:04/18/17 SURGEON: ADY LOPEZ MD DATE OF OPERATION: 04/20/2017 DATE OF SERVICE: 04/20/2017 PROCEDURES: 1. PTCA stent vein graft to RCA. 2. Left heart catheterization. 3. Selective coronary angiography. 4. Vein graft angiography. 5. BISHOP angiography. 6. Left ventriculogram. 7. Intravascular ultrasound. INDICATION: Angina and coronary artery disease. PROCEDURE IN DETAIL: After informed consent was obtained and after detailed explanation of risks, benefits as well as alternative therapies, the patient elected to proceed with angiogram and angioplasty. The right femoral area was prepped and draped in normal sterile fashion. The right femoral artery was cannulated via modified Seldinger technique with placement of 6-Romanian sheath. All catheters exchanged through this sheath. FINDINGS: The left ventriculogram was performed in a standard 30-degree MORRIS view, reveals mild global hypokinesis, ejection fraction of 40%. SELECTIVE CORONARY ANGIOGRAPHY: 1. Left main is closed. 2. Right coronary is closed. 3. BISHOP is closed. 4. Vein graft to the LAD is widely patent, it fills the entire LAD system. 5. Vein graft to the obtuse marginal is widely patent, this fills the entire obtuse marginal system. 6. Vein graft to the right coronary has an 82% stenosis in the mid shaft. PTCA STENT OF THE VEIN GRAFT TO THE RIGHT CORONARY: The stent used was 4.0 x 22 mm Integrity. Result was 0% residual stenosis. OVERALL IMPRESSION: Successful percutaneous transluminal coronary angioplasty stent of the vein graft to the right coronary artery going from 82% initial stenosis confirmed by intravascular ultrasound to 0% residual stenosis. TRANSINT:[id number] Voice Confirmation ID: [id number] DOCUMENT ID: [id number] ADY LOPEZ MD at 0902 CC: [id number] DICTATION DATE: 04/20/171656 MEDIA ACCOUNT EXECUTIVE: 04/20/17 1849 DIS IN 04/21/17 [place] [id number] [place] [id number]
== END 2017-04-21 15:54 | disposition home or self-care (01) | DRG 249 ==
LOC: D.M2 13:48
PROVIDERS: Internal Medicine Cardiovascular Disease; Internal Medicine Interventional Cardiology; ADMIT Family Medicine
PROC: B2121ZZ Fluoroscopy of Single Coronary Artery Bypass Graft using Low Osmolar Contrast (ICD-10-PCS; 2017-04-20)
PROC: B2111ZZ Fluoroscopy of Multiple Coronary Arteries using Low Osmolar Contrast (ICD-10-PCS; 2017-04-20)
PROC: B2181ZZ Fluoroscopy of Left Internal Mammary Bypass Graft using Low Osmolar Contrast (ICD-10-PCS; 2017-04-20)
PROC: B2151ZZ Fluoroscopy of Left Heart using Low Osmolar Contrast (ICD-10-PCS; 2017-04-20)
PROC: 02703DZ Dilation of Coronary Artery, One Artery with Intraluminal Device, Percutaneous Approach (ICD-10-PCS; principal; 2017-04-20 14:30)
PROC: 4A023N7 Measurement of Cardiac Sampling and Pressure, Left Heart, Percutaneous Approach (ICD-10-PCS; 2017-04-20 14:30)
DX: I25.119 Atherosclerotic heart disease of native coronary artery with unspecified angina pectoris (principal); I25.82 Chronic total occlusion of coronary artery; Z95.1 Presence of aortocoronary bypass graft; D46.9 Myelodysplastic syndrome, unspecified; D64.9 Anemia, unspecified; J84.10 Pulmonary fibrosis, unspecified

== ENCOUNTER → 2017-09-05 11:16 | Outpatient (CLI) | payer MEDICARE ==
[2017-04-18 14:45] VITALS: BMI 26.8
[~2017-09-05 11:16] MED LIST changes: +METOLAZONE2.5 MG PO; +SINGULAIR10 MG PO
== END | disposition home or self-care (01) ==
LOC: D.RT 11:00
DX: J44.9 Chronic obstructive pulmonary disease, unspecified (principal)

== ENCOUNTER 2018-05-03 16:10 | Inpatient (IN) | payer MEDICARE ==
[~2018-05-03] VITALS: Ht 157.5 cm; Wt 60.5 kg
--- NOTE | ~2018-05-03 | MORECARE ---
CASE MANAGEMENT DISCHARGE SUMMARY PATIENT: TIMBO HOPE UNIT: [id number] ADM DATE: 05/03/18 AGE: 67 : 49 SEX: F ROOM/BED: D.1950 AUTHOR: CAMMIE ARMENTA PHYSICIAN: REFERRING PHYSICIAN: ADRIÁN CAROLINA MD DATE OF SERVICE: 05/06/18 Discharge Plan Patient Name: TIMBO HOPE Facility: [facility]:[place] : 1950 Planned Disposition: Home Anticipated Discharge Date: 05/05/18 Discharge Date: 05/05/2018 Expected LOS: 2 Initial Reviewer: [email or web address] Initial Review Date: 05/06/2018 Generated: 05/06/18 10:56 am Patient Name: TIMBO HOPE Page 31436 at 0956 All edits/amendments must be made on the electronic document DICTATION DATE: 05/06/18954 SENIOR REVENUE ACCOUNTANT: AKUA 05/06/18954 RPT#: [id number] DC DATE:05/05/18 STATUS: DIS IN [facility] [address] [place] [address] END OF REPORT
--- NOTE | ~2018-05-03 | CN ---
PATIENT NAME:TIMBO HOPE MEDICAL RECORD: [id number] : [birth year] LOCATION:D.M2 D.2120 ADMIT DATE: 05/03/18 ACCOUNT: [id number] CONSULTING PHYSICIAN: RYLAND GAFFNEY MD REFERRING PHYSICIAN: ADRIÁN CAROLINA MD DATE OF CONSULTATION: 05/04/2018 CONSULT REQUESTING PHYSICIAN: Adrián Carolina MD REASON FOR CONSULTATION: Asthma, wheezing. HISTORY OF PRESENT ILLNESS: Ms. Hope is a 67-year-old female. She was seen in Dr. Carolina's office yesterday with worsening shortness of breath, turned out to be her hematocrit was 24.6. She was also wheezing. Denies any fever and chills. There is no yellow-green color sputum production. The patient believe that she might have bronchitis, but now she is feeling a lot better. REVIEW OF SYSTEMS: As in history of present illness. PAST MEDICAL HISTORY: 1. Asthma. 2. Ex-smoker. 3. Hypertension. 4. Anemia secondary to myelodysplastic syndrome. 5. History of coronary artery disease. PAST SURGICAL HISTORY: 1. She has a CABG times 4 vessels. 2. Cholecystectomy. 3. Back surgery. 4. Right shoulder surgery. 5. Vagotomy. 6. Femoral popliteal bypass. ALLERGIES: SHE IS ALLERGIC TO SULFA, CRESTOR, KEFLEX, AND PENICILLIN. MEDICATIONS: On Dnevnik is reviewed. PERSONAL AND SOCIAL HISTORY: The patient is an ex-smoker. She is a nondrinker. FAMILY HISTORY: Significant for cardiovascular diseases. PHYSICAL EXAMINATION: GENERAL: Now, the patient is lying comfortably in bed. She is not in any acute distress. VITAL SIGNS: The blood pressure is 100/40, pulse is 78, respirations 20, temperature 99, SpO2 98% on room air. HEENT: Conjunctivae are pale. Sclerae not icteric. NECK: Supple, no JVD. CHEST: There is no wheeze, no rales. HEART: Rhythm regular, normal sound, no murmur. ABDOMEN: Soft, bowel sounds present. No hepatosplenomegaly. RECTAL: Deferred. EXTREMITIES: No cyanosis, no clubbing, no pedal edema. CONSULT REPORT [id number] TIMBO HOPE SKIN: Warm, normal turgor. CENTRAL NERVOUS SYSTEM: The patient is awake and alert. There are no obvious cranial nerve abnormality. The gait was not tested. LABORATORY DATA: CBC: WBC 4.9, hemoglobin 8.6, hematocrit is 26.3, the platelet count is 148. IMPRESSION: 1. Asthma without acute exacerbation. 2. Wheezing, that has improved. 3. Possible acute bronchitis. 4. Anemia secondary to myelodysplastic syndrome. 5. Secondary pulmonary hypertension with right ventricular systolic pressure of 49. RECOMMENDATION: 1. Continue Singulair 10 mg a day. 2. Start on Brovana, budesonide nebulizer, albuterol nebulizer p.r.n. 3. Check the chest x-ray PA and lateral. Start empiric doxycycline. Dr. Carolina, thank you for involving me in the care of Ms. Hope. TRANSINT:[id number] Voice Confirmation ID: [id number] DOCUMENT ID: [id number] RYLAND GAFFNEY MD CC: [id number] DICTATION DATE: 05/04/18 1417 FORDER OPERATOR: 05/04/18 1539 ADM IN [place] [id number] [place] [id number]
[2018-05-03] MEDS ORDERED: VITAMIN B-12500 MC1 PO (16:47)
[2018-05-03 16:48] VITALS: BMI 24.4
[2018-05-03] MEDS ORDERED: NORCO 10-325 TA1 TAB PO (16:52)
[2018-05-03 17:41] VITALS: BP 102/63
[2018-05-03 17:47] LABS: CREATINE KINASE 145 UL (21-215)
[2018-05-03 17:52] LABS: TROPONIN-I 0.473 ng/mL (0.000-0.060)
[2018-05-03 18:09] VITALS: Ht 157.5 cm; Wt 60.5 kg
[2018-05-03 20:00] VITALS: BP 90/34
[2018-05-04 04:00] VITALS: BP 100/40
[2018-05-04 05:06] LABS: BASOPHILS 0.3 % (0-2); EOSINOPHILS 1.7 % (0-7); HEMATOCRIT 26.3 % (36.0-48.0); HEMOGLOBIN 8.6 g/dL (12-16); IMMATURE GRANULOCYTES 0.2 % (0-5); LYMPHOCYTES 20.6 % (15-50); MCH 28.8 pg (26.0-34.0); MCHC 32.7 g/dL (31.0-37.0); MEAN PLATELET VOLUME 9.2 fL (7.4-10.4); MONOCYTES 15.6 % (2-11); NEUTROPHILS 61.6 % (40-80); RBC 2.99 10x6/uL (4.00-5.40); RDW 15.4 % (11.5-14.5); WBC 5.9 10x3/uL (4.8-10.8)
[2018-05-04 05:08] LABS: PLATELET COUNT 148 10x3/uL (130-400)
[2018-05-04 05:58] LABS: ALBUMIN 2.8 g/dL (3.4-5.0); ALKALINE PHOSPHATASE 65 U/L (46-116); ALT (SGPT) 14 U/L (10-68); BILIRUBIN - TOTAL 1.29 mg/dL (0.2-1.3); CALC OSMOLALITY 273 mosm/kg (275-300); CALCIUM 8.4 mg/dL (8.5-10.1); CARBON DIOXIDE 23.4 mmol/L (21.0-32.0); CHLORIDE - SERUM 101 mmol/L (98-107); CKMB 0.7 U/L (0.0-3.6); CREATINE KINASE 94 UL (21-215); GLUCOSE 100 mg/dL (74-106); POTASSIUM - SERUM 3.9 mmol/L (3.5-5.1); SODIUM 135 mmol/L (136-145); UREA NITROGEN 25 mg/dL (7-18); eGFR NON AFRICAN AMERICAN 58 mL/min (90-120)
[2018-05-04 05:59] LABS: TROPONIN-I 0.477 ng/mL (0.000-0.060)
[2018-05-04 09:56] VITALS: BP 95/36
[2018-05-04 16:17] VITALS: BP 104/33
[2018-05-04 20:30] VITALS: BP 105/42
[2018-05-04 21:46] LABS: HEMOGLOBIN 10.3 g/dL (12-16)
[2018-05-05 04:30] VITALS: BP 95/40
[2018-05-05 06:58] LABS: ALBUMIN 2.8 g/dL (3.4-5.0); ANION GAP 13.3 mmol/L (8-16); BILIRUBIN - TOTAL 1.24 mg/dL (0.2-1.3); CALCIUM 8.8 mg/dL (8.5-10.1); CARBON DIOXIDE 25.5 mmol/L (21.0-32.0); CREATININE - SERUM 0.9 mg/dL (0.6-1.3); POTASSIUM - SERUM 3.8 mmol/L (3.5-5.1); PROTEIN - SERUM 7.3 g/dL (6.4-8.2)
[2018-05-05 07:06] LABS: BASOPHILS 0.2 % (0-2); EOSINOPHILS 1.1 % (0-7); HEMATOCRIT 32.6 % (36.0-48.0); HEMOGLOBIN 10.7 g/dL (12-16); IMMATURE GRANULOCYTES 0.3 % (0-5); LYMPHOCYTES 18.5 % (15-50); MCH 28.8 pg (26.0-34.0); MCHC 32.8 g/dL (31.0-37.0); MCV 87.9 fL (80.0-100.0); MEAN PLATELET VOLUME 9.4 fL (7.4-10.4); MONOCYTES 14.5 % (2-11); NEUTROPHILS 65.4 % (40-80); PLATELET COUNT 137 10x3/uL (130-400); RDW 15.6 % (11.5-14.5); WBC 6.3 10x3/uL (4.8-10.8)
[2018-05-05 07:14] LABS: RBC 3.71 10x6/uL (4.00-5.40)
[2018-05-05 09:33] VITALS: BP 101/37
== END 2018-05-05 12:20 | disposition home or self-care (01) | DRG 812 ==
LOC: D.M2 16:10
PROVIDERS: Family Medicine
DX: D46.9 Myelodysplastic syndrome, unspecified (principal); I24.8 Other forms of acute ischemic heart disease; I25.119 Atherosclerotic heart disease of native coronary artery with unspecified angina pectoris; I35.0 Nonrheumatic aortic (valve) stenosis; I10 Essential (primary) hypertension; K55.20 Angiodysplasia of colon without hemorrhage; J45.909 Unspecified asthma, uncomplicated; J20.9 Acute bronchitis, unspecified; D63.8 Anemia in other chronic diseases classified elsewhere

== ENCOUNTER → 2018-05-22 08:14 | Outpatient (CLI) | payer MEDICARE ==
[2018-05-03 18:09] VITALS: BMI 24.4
[~2018-05-22 08:14] MED LIST changes: +NORCO 10-325 TA1 TAB PO; +VITAMIN B-12500 MC1 PO
== END | disposition home or self-care (01) ==
LOC: D.US 05-15 10:30
DX: I65.23 Occlusion and stenosis of bilateral carotid arteries (principal)

== ENCOUNTER → 2018-05-29 14:55 | Outpatient (CLI) | payer MEDICARE ==
[2018-05-03 18:09] VITALS: BMI 24.4
== END | disposition home or self-care (01) ==
LOC: D.CT 14:55
DX: I65.23 Occlusion and stenosis of bilateral carotid arteries (principal); I25.10 Atherosclerotic heart disease of native coronary artery without angina pectoris; I70.293 Other atherosclerosis of native arteries of extremities, bilateral legs

== ENCOUNTER → 2018-07-03 18:08 | Outpatient (CLI) | payer MEDICARE ==
[2018-05-03 18:09] VITALS: BMI 24.4
== END | disposition home or self-care (01) ==
LOC: D.MAMMO 09:00
DX: Z12.31 Encounter for screening mammogram for malignant neoplasm of breast (principal)

== ENCOUNTER → 2018-09-30 13:03 | Outpatient (CLI) | payer MEDICARE ==
[2018-05-03 18:09] VITALS: BMI 24.4
[2018-09-30 13:11] LABS: BASOPHILS 0.1 % (0-2); EOSINOPHILS 0.3 % (0-7); HEMATOCRIT 20.1 % (36.0-48.0); HEMOGLOBIN 6.4 g/dL (12-16); IMMATURE GRANULOCYTES 0.4 % (0-5); MCH 31.2 pg (26.0-34.0); MCHC 31.8 g/dL (31.0-37.0); MEAN PLATELET VOLUME 9.6 fL (7.4-10.4); MONOCYTES 7.8 % (2-11); NEUTROPHILS 79.4 % (40-80); PLATELET COUNT 179 10x3/uL (130-400); RBC 2.05 10x6/uL (4.00-5.40); RDW 16.3 % (11.5-14.5); WBC 6.9 10x3/uL (4.8-10.8)
== END | disposition home or self-care (01) ==
LOC: D.LABREF 13:03
PROVIDERS: ATTEND Legal Medicine
DX: D58.0 Hereditary spherocytosis (principal); D46.0 Refractory anemia without ring sideroblasts, so stated

== ENCOUNTER 2018-10-01 11:16 | Outpatient (CLI) | payer MEDICARE ==
[~2018-10-01] VITALS: Ht 154.9 cm; Wt 59.1 kg
[2018-10-01 14:21] VITALS: BP 101/28; Ht 154.9 cm; Wt 59.1 kg
== END 2018-10-01 18:30 | disposition home or self-care (01) ==
LOC: D.OPS 11:16
PROVIDERS: ATTEND Legal Medicine
DX: D50.9 Iron deficiency anemia, unspecified (principal); D46.9 Myelodysplastic syndrome, unspecified

== ENCOUNTER 2018-11-04 06:50 | Outpatient (CLI) | payer MEDICARE ==
[~2018-11-04] VITALS: Ht 154.9 cm; Wt 59.1 kg
--- NOTE | ~2018-11-04 | HEMODYNAMI ---
PATIENT:TIMBO HOPE MEDICAL RECORD: [id number] : 48 LOCATION:[facility]# [id number] ADMISSION DATE: 11/04/18 Generatedon:11/04/201810:24 Patient name: TIMBO HOPE Patient #: [id number] SSN: : 1950 Date of study: 11/04/2018 Page: Of Hemodynamic Procedure Report Patient Data Patient Demographics Procedure consent was obtained First Name: TIMBO Gender: Female Last Name: JAYY : 1950 [facility] Initial: LITZY Age: 67 year(s) Patient #: [id number] Race: Unknown Additional ID: [id number] Contact details Address: [address] [place] [address] State: [place] City: [place] Zip code: [address] Past Medical History Allergies Allergen Reaction Date Comments Reported Other allergy 04/20/2017 SULFA, ROSUVASTATIN, CEPHALEXIN MONOHYDRATE, PCN Other allergy 04/20/2017 SULFA, ROSUVASTATIN,PCN, CEPHALEXIN MONOHYDRATE Other allergy 11/04/2018 PCN,KEFLEX,SULFA,AND CRESTOR Admission Admission Data Admission Date: 11/04/2018 Admission Time: 6:50 Procedure Procedure Types Cath Procedure Peripheral Cath Diagnostic Procedure 4-Vessel Left Carotid Arteriogram Procedure Description Procedure Date Procedure Date: 11/04/2018 Procedure Start Time: 9:25 Procedure Staff Name Function Robert Terry MD Performing Physician Miguel Angel Yoo RT Monitor CLAUDINE DOMINGUEZ RT Scrub Anastacia Verma RN Nurse Carmen Sadler RN Nurse Procedure Data Cath Procedure Fluoroscopy Diagnostic fluoroscopy Total fluoroscopy Time: time: 11.5 min 11.5 min Diagnostic fluoroscopy Total fluoroscopy dose: 467 dose: 467 mGy mGy Contrast Material Contrast Material Type Amount (ml) Isovue 300 155 Entry Location Entry Primary Successful Side Size Upsize Upsize Entry Closure Succes sful Closure Location (Fr) 1 (Fr) 2 (Fr) Remarks Device Remarks Femoral Right 5 Fr Exoseal artery Diagnostic catheters Device Type Used For End Catheter Placement Merit ULTRA BOLUS FLUSH 5Fr 90CM catheter ([id number]) Procedure Medications Medication Administration Route Dosage Heparin Flush Bag added to field 3 bags (1000units/500ml NS) Lidocaine 1% added to field 20 Fentanyl I.V. 25 mcg Versed I.V. 0.5 mg Hemodynamics Rest Heart Rate: 89 (bpm) Snapshots Pre Cath Intra NCS Post Cath Vital Signs Time Heart Resp SPO2 etCO2 NIBP (mmHg) Rhythm Pain Sedation Rate (ipm) (%) (mmHg) Status Level (bpm) 9:06:04 92 18 98 26.3 123/53(95) NSR 0 (11) 10(A) , No pain 9:10:14 93 9 98 27 123/61(91) NSR 0 (11) 10(A) , No pain 9:14:26 86 13 99 29.3 128/54(92) NSR 0 (11) 10(A) , No pain 9:18:38 83 16 100 27 114/57(89) NSR 0 (11) 10(A) , No pain 9:22:46 87 12 100 19.5 126/57(94) NSR 0 (11) 10(A) , No pain 9:26:58 86 10 100 21 118/56(89) NSR 0 (11) 10(A) , No pain 9:31:04 89 26 99 27 112/66(97) NSR 0 (11) 8(A) , No pain 9:35:09 86 8 100 23.2 126/56(89) NSR 0 (11) 8(A) , No pain 9:39:21 79 16 100 29.3 127/56(83) NSR 0 (11) 8(A) , No pain 9:43:31 85 20 100 27.8 124/60(96) NSR 0 (11) 8(A) , No pain 9:47:43 88 22 100 19.5 130/55(99) NSR 0 (11) 8(A) , No pain 9:51:57 84 18 100 26.2 115/54(89) NSR 0 (11) 8(A) , No pain 9:56:05 82 14 100 27 131/59(100) NSR 0 (11) 8(A) , No pain 10:00:17 83 16 100 3 135/61(96) NSR 0 (11) 8(A) , No pain 10:04:31 80 18 100 12 133/59(89) NSR 0 (11) 8(A) , No pain 10:08:43 85 18 100 0 140/67(104) NSR 0 (11) 8(A) , No pain 10:12:57 88 19 100 25.5 137/62(95) NSR 0 (11) 8(A) , No pain 10:17:13 86 20 99 26.3 143/55(101) NSR 0 (11) 8(A) , No pain 10:21:31 83 19 100 0 128/54(92) NSR 0 (11) 8(A) , No pain Medications Time Medication Route Dose Verified Delivered Reason Notes Effec tiveness by by 8:59:00 Heparin Flush added 3 Robert Jones used for Bag to bags Harrison Terry MD procedure (1000units/500ml field AGUILAR NS) 8:59:12 Lidocaine 1% added 20ml Robert Jones for local to vial Harrison Terry MD anesthetic field AGUILAR 9:29:39 Fentanyl I.V. 25 Robert Galaviz for mcg Bayron Terry RN sedation 9:29:51 Versed I.V. 0.5 Robert Galaviz for mg Bayron Terry RN sedation Procedure Log Time Note 8:57:17 Anastacia Verma RN sent for patient. Start room use. 8:57:19 Time tracking: Regular hours (M-F 7:00 - 5:00) 8:57:23 Plan of Care:Hemodynamics will remain stable., Cardiac rhythm will remain stable., Comfort level will be maintained., Respiratory function will remain adequate., Patient/ family verbilizes understanding of procedure., Procedure tolerated without complication., Recovers from procedure without complications.. 8:57:42 Patient received from Outpatients to IR Alert and oriented. Tansferred to table in Supine position. 8:57:43 Correct patient and procedure confirmed by team. 8:57:45 Signed procedure consent form obtained from patient. 8:57:46 ECG and BP/O2 sat monitors applied to patient. 8:57:47 Full Disclosure recording started 8:57:48 - 8:57:52 H&P Date Dictated: 11/04/2018 H&P Addendum completed by physician on day of procedure. (MUST COMPLETE FOR ALL OUTPATIENTS). 8:57:53 Pre-procedure instructions explained to patient. 8:57:54 Pre-op teaching completed and patient verbalized understanding. 8:57:55 Family in waiting room. 8:57:57 Patient NPO since Midnight. 8:58:51 Patient allergic to Other allergyPCN,KEFLEX,SULFA,AND CRESTOR 8:58:57 Is the patient allergic to Iodine/contrast media? No. 8:59:00 Heparin Flush Bag (1000units/500ml NS) 3 bags added to field was administered by Robert Terry MD; used for procedure; 8:59:12 Lidocaine 1% 20ml vial added to field was administered by Robert Terry MD; for local anesthetic; 8:59:16 Use device set IR Diagnostic 8:59:17 ACIST Syringe (34909) opened to sterile field. 8:59:18 ACIST Hand Control (09151) opened to sterile field. 8:59:18 ACIST Manifold (15436) opened to sterile field. 8:59:19 Bag Decanter (2002S) opened to sterile field. 8:59:19 Sterile Angiographic Pack opened to sterile field. 8:59:20 Tegaderm 4 x 4 (1626W) opened to sterile field. 9:00:41 - 9:00:42 ----Pre-sedation anethsthesia assessment.---- 9:00:45 Previous problem with sedation/anesthesia? No ? 9:00:46 Snore? Yes 9:00:48 Sleep apnea? No 9:00:49 Deviated septum? No 9:00:50 Opens mouth fully? Yes 9:00:51 Sticks out tongue? Yes 9:00:53 Airway obstruction? No ? 9:00:57 Dentures? Yes IN 9:01:01 Is patient on blood thinner?Yes 9:01:05 ACC The patient was administered the following blood thiners within the last 24 hours: ACCBrilinta 9:01:09 Patient diabetic? No. 9::19 IV patent on arrival in right forearm [facility]. 9::25 Patient pain scale 0/10 NO PAIN. 9::47 Baseline sample Acquired. 9::47 Vital chart was started 9:14:35 Alarms reviewed by R. N. 9::35 Sharps counted by scrub and verified by R.N. 9:14:38 Right groin area was prepped with chlora-prep and draped in sterile fashion 9:15:08 Pre procedure: right dorsailis pedis pulse 1+ Palpable, but thready & weak; easily obliterated 9:15:11 Pre procedure: right posterior tibial pulse Doppler 9:23:29 Physician arrived 9:23:30 --------ALL STOP TIME OUT------ 9:23:30 Final Timeout: patient, procedure, and site verified with staff and physician. All members of the team are in agreement. 9:23:33 Right groin site verified by team. 9:23:37 Maximum allowable Isovue 300 dose 300ml. Physician notified. (300ml for normal creatinines. For patients with creatinine of 1.7 or higher multiply weight(kg) x 5 divided by creatinine.) 9:23:43 Fire Safety Assessment: A--An alcohol-based skin anteseptic being used preoperatively., C--Open oxygen or nitrous oxide is being used. 9:23:48 Sedation plan: IV Moderate Sedation Medication:Versed, Fentanyl 9:25:14 Procedure started. 9:25:21 Local anesthetic to right femoral artery with Lidocaine 1% by Robert Terry MD.INITIAL ACCESS ONLY 9:25:34 DOC .035 wire (O84829) opened to sterile field. 9:25:34 Micropuncture VSI 4FR kit opened to sterile field. 9:25:34 SHEATH 5FR [place] (KLW199) opened to sterile field. 9:25:35 TUBING Contrast Injection High Pressure (DKZ249V) opened to sterile field. 9:25:37 Access obtained with 4Fr micropunture. 9:25:38 Access obtained with 4Fr micropunture. 9:25:49 A 5 Fr sheath was inserted into the Right Femoral artery 9:28:25 A [employer] ULTRA BOLUS FLUSH 5Fr 90CM catheter ([id number]) was advanced over the wire and used for . 9:29:39 Fentanyl 25 mcg I.V. was administered by Anastacia Verma RN; for sedation; 9:29:51 Versed 0.5 mg I.V. was administered by Anastacia Verma RN; for sedation; 9:34:05 GLIDE CATHETER 5FR ANGLED 65cm (CG507) opened to sterile field. 9:34:54 GLIDE WIRE ANGLE 180cm (LN8190) opened to sterile field. 9:34:55 TORQUE DEVICE PLASTIC .038 ( TD01) opened to sterile field. 9:40:08 GLIDE CATHETER 5FR ANGLED 100cm (CG508) opened to sterile field. 9:41:22 YODER 260 wire (B96891) opened to sterile field. 9:42:40 GLIDE WIRE MERIT Angled 260cm ([id number]) opened to sterile field. 10:07:44 EXOSEAL 5Fr (EX500) opened to sterile field. 10:13:45 Sheath removed intact; hemostasis achieved with Exoseal to the Right Femoral artery. 10:13:48 Procedure ended.(Physican Out) 10:16:13 Fluoroscopy time 11.50 minutes. 10:16:17 Fluoroscopy dose: 467 mGy 10:16:17 Flurop Dose total: 467 10:16:52 Contrast amount:Isovue 300 155ml. 10:16:54 Sharps counted by scrub and verified by R.N. 10:16:56 Insertion/operative site no bleeding no hematoma. 10:16:59 Post-op/insertion site Right Femoral artery dressed using a 4 x 4 and Tegaderm. 10:17:03 Post right femoral artery:stable 10:17:04 Post Procedure Pulses reassessed and unchanged 10:17:05 Post procedure instruction explained to patient.Patient verbalizes understanding. 10:17:06 Procedure and supply charges have been captured, reviewed, submitted an d are correct. 10:24:34 Vital chart was stopped Device Usage Item Name Manufacture Quantity Catalog Number Hospital Part Current M inimal Lot# / Charge Number Stock Stock Serial# Code ACIST Syringe Acist 1 63726 [id number] 660536 777882 2 0 (00006) Medical Systems Inc ACIST Hand Acist 1 18852 989646 103331 264099 5 Control (68685) [employer] Inc ACIST Manifold Acist 1 06169 541665 835627 528308 5 (29607) Medical Systems Inc Bag Decanter Microtek 1 2001S 367859 61173 876002 5 (2001S) Medical Inc. Sterile Cardinal 1 [id number] 388235 481482 5 Angiographic Health Pack Tegaderm 4 x 4 3M 1 1626W 384284 258121 137296 5 (1626W) DOC .035 wire Cook Medical 1 N11342 949864 004458 5 (W52864) Micropuncture VSI VASCULAR 1 7266V 944448 080551 5 VSI 4FR kit SOLUTIONS SHEATH 5FR Terumo 1 UIG080 740893 778131 666094 5 [place] (WHE583) TUBING Contrast Merit 1 YQU240P 429420 934020 458671 5 Injection High Medical Pressure (PMN129G) Merit ULTRA Merit 1 [id number] 572747 807165 5 [id number] BOLUS FLUSH 5Fr Medical 90CM catheter ([id number]) GLIDE CATHETER Terumo 1 CG507 936539 959516 5 5FR ANGLED 65cm (CG507) GLIDE WIRE Terumo 1 JI4226 591800 739605 631998 5 ANGLE 180cm (EX9635) TORQUE DEVICE [place] 1 TD01 746538 283473 761183 5 PLASTIC .038 ( Scientific TD01) GLIDE CATHETER Terumo 1 CG508 454500 62963 626547 4 5FR ANGLED 100cm (CG508) YODER 260 wire [employer] 1 J66513 310737 34827 696632 5 (W81370) GLIDE WIRE Merit 1 [id number] 789654 247225 710529 5 [id number] MERIT Angled Medical 260cm ([id number]) EXOSEAL 5Fr Cardinal 1 EX500 555555 951857 281215 1 0 [id number] (EX500) Health Signature Audit [place] Stage Time Signature Unsigned Intra-Procedure 11/04/2018 Miguel Angel 10:24:27 AM Naila RT (R) (CV) Signatures Monitor : Miguel Angel Signature : Naila RT Date : Time : [place] [id number] [place] [id number]
[2018-11-04 07:06] LABS: BASOPHILS 0.2 % (0-2); EOSINOPHILS 0.2 % (0-7); HEMATOCRIT 27.2 % (36.0-48.0); HEMOGLOBIN 8.4 g/dL (12-16); IMMATURE GRANULOCYTES 0.2 % (0-5); LYMPHOCYTES 14.3 % (15-50); MCH 26.9 pg (26.0-34.0); MCHC 30.9 g/dL (31.0-37.0); MCV 87.2 fL (80.0-100.0); MONOCYTES 8.4 % (2-11); NEUTROPHILS 76.7 % (40-80); PLATELET COUNT 117 10x3/uL (130-400); RBC 3.12 10x6/uL (4.00-5.40); RDW 16.5 % (11.5-14.5)
[2018-11-04 07:18] LABS: ANION GAP 14.4 mmol/L (8-16); CALCIUM 8.7 mg/dL (8.5-10.1); POTASSIUM - SERUM 3.4 mmol/L (3.5-5.1)
[2018-11-04 07:32] LABS: INR 1.19 (0.85-1.17); PROTIME 14.6 SECONDS (11.6-15.0)
[2018-11-04 07:33] LABS: APTT 33.3 SECONDS (22.8-39.4)
[2018-11-04 08:23] VITALS: BP 131/60; Ht 154.9 cm; Wt 59.1 kg
--- NOTE | 2018-11-04 11:00 | NUR ---
FREQUENT VS SHEET DONE. PALP PULSES AND AT BEDSIDE
== END 2018-11-04 14:00 | disposition home or self-care (01) ==
LOC: D.SP 06:50 → D.RAD 09:00 → D.SP 14:00
PROVIDERS: ATTEND General Practice
DX: I65.21 Occlusion and stenosis of right carotid artery (principal); Z01.812 Encounter for preprocedural laboratory examination

== ENCOUNTER 2018-11-29 10:11 | Outpatient (CLI) | payer MEDICARE ==
[~2018-11-29] VITALS: Ht 154.9 cm; Wt 59.1 kg
[2018-11-29 11:42] VITALS: Ht 154.9 cm; Wt 59.1 kg
--- NOTE | 2018-11-29 16:20 | NUR ---
UNIT #2 PRBC'S INFUSING WITHOUT DIFFICULTY VIA PIV. INFUSION RATE INCREASED.
--- NOTE | 2018-11-29 17:20 | NUR ---
INFUSION COMPLETED. IV DC'D WITH CATHETER INTACT.
--- NOTE | 2018-11-29 17:45 | NUR ---
WRITTEN AND VERBAL DC INST. GIVEN TO PATIENT. VERBALIZED UNDERSTANDING.
--- NOTE | 2018-11-29 17:55 | NUR ---
DC'D HOME VIA PRIVATE VEHICLE. STABLE AT TIME OF DC.
== END 2018-11-29 17:55 | disposition home or self-care (01) ==
LOC: D.OPS 10:11
PROVIDERS: ATTEND Legal Medicine
DX: D50.9 Iron deficiency anemia, unspecified (principal)

== ENCOUNTER → 2019-04-16 12:43 | Outpatient (CLI) | payer MEDICARE ==
[2018-11-29 11:42] VITALS: BMI 24.6
[2019-04-16 13:52] LABS: BASOPHILS 0.2 % (0-2); EOSINOPHILS 2.8 % (0-7); HEMATOCRIT 25.6 % (36.0-48.0); HEMOGLOBIN 7.7 g/dL (12-16); LYMPHOCYTES 14.8 % (15-50); MCH 27.3 pg (26.0-34.0); MCHC 30.1 g/dL (31.0-37.0); MCV 90.8 fL (80.0-100.0); MEAN PLATELET VOLUME 9.3 fL (7.4-10.4); MONOCYTES 7.9 % (2-11); NEUTROPHILS 74.3 % (40-80); PLATELET COUNT 159 10x3/uL (130-400); RBC 2.82 10x6/uL (4.00-5.40); RDW 15.8 % (11.5-14.5); WBC 6.3 10x3/uL (4.8-10.8)
== END | disposition home or self-care (01) ==
LOC: D.LABREF 12:43
PROVIDERS: ATTEND Legal Medicine
DX: D58.2 Other hemoglobinopathies (principal)

== ENCOUNTER 2019-04-17 09:41 | Outpatient (CLI) | payer MEDICARE ==
[~2019-04-17] VITALS: Ht 154.9 cm; Wt 57.3 kg
[2019-04-17 10:34] VITALS: BP 106/58; Ht 154.9 cm; Wt 57.3 kg
--- NOTE | 2019-04-17 15:03 | NUR ---
INFUSION IS COMPLETE. VSS. PT WAITING FOR TO PICK HER UP.
== END 2019-04-17 15:12 | disposition home or self-care (01) ==
LOC: D.OPS 09:41
DX: I25.10 Atherosclerotic heart disease of native coronary artery without angina pectoris (principal); I10 Essential (primary) hypertension; R01.1 Cardiac murmur, unspecified; D58.9 Hereditary hemolytic anemia, unspecified; D50.9 Iron deficiency anemia, unspecified; D46.20 Refractory anemia with excess of blasts, unspecified; J43.8 Other emphysema; I73.9 Peripheral vascular disease, unspecified

== ENCOUNTER → 2019-05-06 17:26 | Outpatient (CLI) | payer MEDICARE ==
[2019-04-17 10:34] VITALS: BMI 23.8
[2019-05-06 17:46] LABS: BASOPHILS 0.1 % (0-2); HEMATOCRIT 26.8 % (36.0-48.0); HEMOGLOBIN 8.3 g/dL (12-16); IMMATURE GRANULOCYTES 0.1 % (0-5); LYMPHOCYTES 12.1 % (15-50); MCV 90.5 fL (80.0-100.0); MEAN PLATELET VOLUME 8.9 fL (7.4-10.4); MONOCYTES 9.5 % (2-11); NEUTROPHILS 77.2 % (40-80); PLATELET COUNT 173 10x3/uL (130-400); RBC 2.96 10x6/uL (4.00-5.40); WBC 7.3 10x3/uL (4.8-10.8)
== END | disposition home or self-care (01) ==
LOC: D.LABREF 17:26
DX: D58.2 Other hemoglobinopathies (principal)

== ENCOUNTER → 2019-06-11 12:28 | Outpatient (CLI) | payer MEDICARE ==
[2019-04-17 10:34] VITALS: BMI 23.8
[2019-06-11 13:06] LABS: BASOPHILS 0.4 % (0-2); HEMATOCRIT 24.3 % (36.0-48.0); IMMATURE GRANULOCYTES 0.2 % (0-5); LYMPHOCYTES 17.4 % (15-50); MCH 26.1 pg (26.0-34.0); MCHC 29.6 g/dL (31.0-37.0); MEAN PLATELET VOLUME 9.1 fL (7.4-10.4); MONOCYTES 12.2 % (2-11); NEUTROPHILS 66.8 % (40-80); PLATELET COUNT 173 10x3/uL (130-400); RBC 2.76 10x6/uL (4.00-5.40); RDW 17.5 % (11.5-14.5); WBC 5.3 10x3/uL (4.8-10.8)
[2019-06-11 13:09] LABS: HEMOGLOBIN 7.2 g/dL (12-16)
== END | disposition home or self-care (01) ==
LOC: D.LABREF 12:28
PROVIDERS: ATTEND Legal Medicine
DX: D61.89 Other specified aplastic anemias and other bone marrow failure syndromes (principal)

== ENCOUNTER 2019-06-13 09:14 | Outpatient (CLI) | payer MEDICARE ==
[~2019-06-13] VITALS: Ht 154.9 cm; Wt 58.6 kg
[2019-06-13 10:13] VITALS: Ht 154.9 cm; Wt 58.6 kg
--- NOTE | 2019-06-13 14:32 | NUR ---
1420-DISCHARGE CRITERIA MET. REVIEWED POST OPERATIVE INSTRUCTIONS.VERBALIZED UNDERSTANDING. WILL NOT BE ABLE TO PICK HER UP UNTIL AFTER 1500 WHEN HE PICKS GRANDSKIDS UP.
--- NOTE | 2019-06-13 14:35 | NUR ---
AWAITING FOR FOR TRANSPORT HOME. HE WILL ARRIVE AFTER HE PICKS THEIR GRANDKIDS UP FROM SCHOOL AT 1500.
== END 2019-06-13 15:05 | disposition home or self-care (01) ==
LOC: D.OPS 09:14
PROVIDERS: ATTEND Legal Medicine
DX: D58.9 Hereditary hemolytic anemia, unspecified (principal)

== ENCOUNTER → 2019-06-25 10:05 | Outpatient (CLI) | payer MEDICARE ==
[2019-06-13 10:13] VITALS: BMI 24.4
== END | disposition home or self-care (01) ==
LOC: D.HCCECHO 10:05
PROVIDERS: ATTEND Internal Medicine Cardiovascular Disease
DX: I25.119 Atherosclerotic heart disease of native coronary artery with unspecified angina pectoris (principal)

== ENCOUNTER → 2019-07-01 10:00 | Outpatient (CLI) | payer MEDICARE ==
[2019-06-13 10:13] VITALS: BMI 24.4
== END | disposition home or self-care (01) ==
LOC: D.US 10:00
PROVIDERS: ATTEND Internal Medicine Cardiovascular Disease
DX: I65.23 Occlusion and stenosis of bilateral carotid arteries (principal)

== ENCOUNTER 2019-07-02 12:19 | Outpatient (CLI) | payer MEDICARE ==
[~2019-07-02] VITALS: Ht 154.9 cm; Wt 59.5 kg
[2019-07-02 12:56] VITALS: BP 114/50; BMI 24.9
[2019-07-02 13:11] LABS: BASOPHILS 0.2 % (0-2); EOSINOPHILS 1.4 % (0-7); HEMATOCRIT 22.6 % (36.0-48.0); IMMATURE GRANULOCYTES 0.2 % (0-5); LYMPHOCYTES 10.2 % (15-50); MCH 26.3 pg (26.0-34.0); MCHC 29.6 g/dL (31.0-37.0); MCV 88.6 fL (80.0-100.0); MEAN PLATELET VOLUME 9.1 fL (7.4-10.4); MONOCYTES 7.8 % (2-11); NEUTROPHILS 80.2 % (40-80); PLATELET COUNT 204 10x3/uL (130-400); RBC 2.55 10x6/uL (4.00-5.40); RDW 18.1 % (11.5-14.5); WBC 6.4 10x3/uL (4.8-10.8)
[2019-07-02 13:30] LABS: ANION GAP 14.5 mmol/L (8-16); CALCIUM 8.6 mg/dL (8.5-10.1); CARBON DIOXIDE 23.6 mmol/L (21.0-32.0); CHOL - HDL RATIO 3.5 ratio (2.3-4.1); CREATININE - SERUM 1.2 mg/dL (0.6-1.3); HEMOGLOBIN 6.7 g/dL (12-16); POTASSIUM - SERUM 4.1 mmol/L (3.5-5.1)
--- NOTE | 2019-07-02 14:55 | NUR ---
PT IN [facility] ROOM 3, DR. DAVIDSON IN TO SEE PT, NEW ORDERS REC'D TO ADMISSION TO HOSPITAL FOR PRBC TRANSFUSION, THEN PLAN FOR HEART CATH IN AM. L AC 22GA SL'D. NEW 20GA PIV SITED TO R FA X 1 STICK. BLOOD DRAW TO PINK TUBE AND BLOOD BAND PLACED ON R ARM. AT BS. AWAITING ROOM ASSIGNMENT.
--- NOTE | 2019-07-02 15:50 | NUR ---
REPORT CALLED TO [facility] AND TRANSFERRED TO 213 VIA STRETCHER.
--- NOTE | 2019-07-02 16:10 | NUR ---
PT BACK TO ROOM CL 3, ROOM 2139 NOT READY. PT REPORTS TAKING BENADRYL PRIOR TO BLOOD TRANSFUSIONS. DR. LETY QUEZADA.
--- NOTE | 2019-07-02 16:20 | NUR ---
NEW ORDERS REC'D FROM DR. DAVIDSON.
--- NOTE | 2019-07-02 16:55 | NUR ---
BEGIN UNIT #1 OF 2 UNITS PRBC PER MD ORDER, PER HOSPITAL POLICY. PT NOFIFIED OF S/S TO REPORT. ALARMS ON AND C/L IN REACH.
--- NOTE | 2019-07-02 17:10 | NUR ---
PRBCS INFUSING, NO S/S OF ADVERSE RXN. PT RESTING QUIETLY.
--- NOTE | 2019-07-02 17:18 | NUR ---
ROOM 2139 NOW READY. B/P 106/43, HR 80. WILL TRANSFER PT VIA .
--- NOTE | 2019-07-02 18:00 | NUR ---
PT TO ROOM FROM MANAGER PORTABLE HOLDING. ADMITTED FOR BLOOD TRANSFUSION AFTER HEART CATH CANCELLED. FIRST UNIT INFUSING UPON ARRIVAL. PT AMBULATORY TO RESTROOM.
--- NOTE | 2019-07-02 19:30 | NUR ---
EVENING ROUNDS COMPLETED. VSS, ALTHOUGH SBP IS BEEN ON LOWER 90'S ON THREE OCCASSION. PT PLACED ON A Q15 BP MONITORING. PRBC'S INFUSING AT 125. PT TOLERATING WELL. INITIAL ASSESSMENT COMPLETED. WILL ADMINISTER SECOND PRBC'S WHEN THE FIRST IS COMPLETED. PARADISE LOPEZ PROVIDED PER PT'S REQUEST. PT DENIES ANY FURTHER NEEDS AT THIS TIME. WILL CPOC. CL WITHIN REACH.
[2019-07-02 19:40] VITALS: BP 100/40; Ht 154.9 cm; Wt 59.5 kg
[2019-07-02 20:00] VITALS: BP 96/40
[2019-07-03] VITALS: BP 108/49
[2019-07-03 04:00] VITALS: BP 128/55
--- NOTE | 2019-07-03 07:07 | NUR ---
PT NOT ON TELE AT THIS TIME. ALTHOUGH NOTIFIED INCOMING NURSE TO PLACE ONE ON PT WHEN ONE BECOMES AVAILABLE.
--- NOTE | 2019-07-03 07:36 | NUR ---
RESTING QUIETLY IN BED WATCHING TV. DENIES ANY PAIN OR DISCOMFORT. REMAINS NPO FOR POSSIBLE CATH TODAY. SL PATENT TO RIGHT FA AND RIGHT AC WITHOUT REDNESS OR EDEMA AT SITE. SIDERAILS UP X 2 AND CALL LIGHT IN REACH.
[2019-07-03 08:00] VITALS: BP 117/46
[2019-07-03 09:06] LABS: BASOPHILS 0.2 % (0-2); EOSINOPHILS 2.2 % (0-7); HEMATOCRIT 27.1 % (36.0-48.0); IMMATURE GRANULOCYTES 0.3 % (0-5); LYMPHOCYTES 19.8 % (15-50); MCH 26.1 pg (26.0-34.0); MCHC 30.3 g/dL (31.0-37.0); MEAN PLATELET VOLUME 9.1 fL (7.4-10.4); NEUTROPHILS 69.5 % (40-80); PLATELET COUNT 165 10x3/uL (130-400); RDW 19.3 % (11.5-14.5); WBC 6.5 10x3/uL (4.8-10.8)
[2019-07-03 09:14] LABS: HEMOGLOBIN 8.2 g/dL (12-16); MCV 86.3 fL (80.0-100.0); RBC 3.14 10x6/uL (4.00-5.40)
[2019-07-03 12:00] VITALS: BP 105/50
== END 2019-07-03 12:45 | disposition home or self-care (01) ==
LOC: D.CATH 12:19 → D.M2 17:35 → D.CATH 07-03 12:45
PROVIDERS: ATTEND Internal Medicine Cardiovascular Disease
DX: R94.30 Abnormal result of cardiovascular function study, unspecified (principal); I25.110 Atherosclerotic heart disease of native coronary artery with unstable angina pectoris; I20.0 Unstable angina

== ENCOUNTER → 2019-07-30 12:47 | Outpatient (CLI) | payer MEDICARE ==
[2019-07-02 19:40] VITALS: BMI 24.8
[2019-07-30 12:56] LABS: BASOPHILS 0.2 % (0-2); EOSINOPHILS 1.5 % (0-7); HEMATOCRIT 29.6 % (36.0-48.0); HEMOGLOBIN 8.9 g/dL (12-16); IMMATURE GRANULOCYTES 0.2 % (0-5); LYMPHOCYTES 12.9 % (15-50); MCH 25.6 pg (26.0-34.0); MCHC 30.1 g/dL (31.0-37.0); MCV 85.1 fL (80.0-100.0); MEAN PLATELET VOLUME 8.9 fL (7.4-10.4); MONOCYTES 8.9 % (2-11); NEUTROPHILS 76.3 % (40-80); PLATELET COUNT 192 10x3/uL (130-400); RBC 3.48 10x6/uL (4.00-5.40); RDW 17.6 % (11.5-14.5); WBC 4.7 10x3/uL (4.8-10.8)
== END | disposition home or self-care (01) ==
LOC: D.LABREF 12:47
PROVIDERS: ATTEND Legal Medicine
DX: D58.2 Other hemoglobinopathies (principal); D50.8 Other iron deficiency anemias

== ENCOUNTER 2019-08-15 09:46 | Outpatient (CLI) | payer MEDICARE ==
[~2019-08-15] VITALS: Ht 154.9 cm; Wt 56.8 kg
[2019-08-15 10:24] VITALS: Ht 154.9 cm; Wt 56.8 kg
--- NOTE | 2019-08-15 13:46 | NUR ---
SECOND UNIT PRBC'S TRANSFUSING TO RIGHT WRIST PIV. VSS, PATIENT DENIES ITCHING, SHORTNESS OF BREATH, CHEST PAIN OR ANY UNTOWARD SYMPTOMS
--- NOTE | 2019-08-15 14:55 | NUR ---
PATIENT WITHOUT SIGNS OR SYMPTOMS OF TRANSFUSION REACTION. RIGHT WRIST PIV DC'D WITH TIP INTACT. PATIENT HAS POST-TRANSFUSION INSTRUCTIONS IN HAND AND IS DISCHARGED AMBULATORY TO HOME
== END 2019-08-15 14:55 | disposition home or self-care (01) ==
LOC: D.OPS 09:46
PROVIDERS: ATTEND Legal Medicine
DX: D58.9 Hereditary hemolytic anemia, unspecified (principal)

== ENCOUNTER 2019-10-01 10:17 | Outpatient (CLI) | payer MEDICARE ==
[~2019-10-01] VITALS: Ht 154.9 cm; Wt 56.8 kg
[2019-10-01 11:08] VITALS: BP 125/52; Ht 154.9 cm; Wt 56.8 kg
== END 2019-10-01 16:25 | disposition home or self-care (01) ==
LOC: D.OPS 10:17
PROVIDERS: ATTEND Legal Medicine
DX: D58.9 Hereditary hemolytic anemia, unspecified (principal); I35.0 Nonrheumatic aortic (valve) stenosis

== ENCOUNTER → 2019-10-28 13:52 | Outpatient (CLI) | payer MEDICARE ==
[2019-10-28 14:12] LABS: BASOPHILS 0.2 % (0-2); EOSINOPHILS 2.4 % (0-7); HEMATOCRIT 34.5 % (36.0-48.0); HEMOGLOBIN 10.8 g/dL (12-16); LYMPHOCYTES 22.2 % (15-50); MCH 26.9 pg (26.0-34.0); MCHC 31.3 g/dL (31.0-37.0); MEAN PLATELET VOLUME 9.1 fL (7.4-10.4); NEUTROPHILS 63.2 % (40-80); PLATELET COUNT 162 10x3/uL (130-400); RBC 4.01 10x6/uL (4.00-5.40); RDW 17.6 % (11.5-14.5)
== END | disposition home or self-care (01) ==
LOC: D.LAB 13:52
PROVIDERS: ATTEND Internal Medicine Cardiovascular Disease
DX: D64.9 Anemia, unspecified (principal); M79.10 Myalgia, unspecified site

== ENCOUNTER → 2019-11-04 13:36 | Outpatient (CLI) | payer MEDICARE ==
[2019-11-04 16:20] LABS: HEMOGLOBIN 8.5 g/dL (12-16); MCH 26.2 pg (26.0-34.0); MCHC 30.4 g/dL (31.0-37.0); MCV 86.2 fL (80.0-100.0); MEAN PLATELET VOLUME 8.9 fL (7.4-10.4); PLATELET COUNT 172 10x3/uL (130-400); RBC 3.25 10x6/uL (4.00-5.40); WBC 4.1 10x3/uL (4.8-10.8)
[2019-11-04 16:23] LABS: EOSINOPHILS 4 % (0-7); LYMPHOCYTES 26 % (15-50); MONOCYTES 6 % (2-11); NEUTROPHILS 64 % (40-80); PLATELET ESTIMATE NORMAL
== END | disposition home or self-care (01) ==
LOC: D.LABREF 13:36
PROVIDERS: ATTEND Legal Medicine
DX: D58.2 Other hemoglobinopathies (principal)

== ENCOUNTER → 2019-11-17 23:57 | Outpatient (CLI) | payer MEDICARE ==
[2019-11-18 00:03] LABS: BASOPHILS 0.2 % (0-2); HEMATOCRIT 25.4 % (36.0-48.0); HEMOGLOBIN 7.5 g/dL (12-16); IMMATURE GRANULOCYTES 0.2 % (0-5); LYMPHOCYTES 21.1 % (15-50); MCHC 29.5 g/dL (31.0-37.0); MCV 88.2 fL (80.0-100.0); MEAN PLATELET VOLUME 9.5 fL (7.4-10.4); MONOCYTES 10.2 % (2-11); NEUTROPHILS 64.3 % (40-80); PLATELET COUNT 159 10x3/uL (130-400); RBC 2.88 10x6/uL (4.00-5.40); RDW 17.7 % (11.5-14.5); WBC 5.2 10x3/uL (4.8-10.8)
== END | disposition home or self-care (01) ==
LOC: D.LABREF 23:57
DX: D58.9 Hereditary hemolytic anemia, unspecified (principal)

== ENCOUNTER 2019-11-18 09:11 | Outpatient (CLI) | payer MEDICARE ==
[~2019-11-18] VITALS: Ht 154.9 cm; Wt 58.2 kg
[2019-11-18 10:32] VITALS: BP 99/55; Ht 154.9 cm; Wt 58.2 kg
--- NOTE | 2019-11-18 11:48 | NUR ---
1145 AWAKE & ALERT, SITTING UP ON SIDE OF BED. 1ST UNIT OF PRBC'S INFUSING @ 175ML/HR PER ALARUS PUMP TO RIGHT ARM. NO COMPLAINTS VOICED. Eliazar VASQUEZ R.N.
--- NOTE | 2019-11-18 12:41 | NUR ---
1215 SERVED REGULAR DIET. Eliazar VASQUEZ R.N. 1230 EATING LUNCH. SITTING UP IN BED. 1ST UNIT PRBC'S CONTINUES TO INFUSE @ 175ML/HR PER ALARUS PUMP TO RIGHT ARM WITHOUT DIFFICULTY. PT DENIES SHORTNESS OF BREATH. Eliazar Parra.N.
--- NOTE | 2019-11-18 14:19 | NUR ---
1415 2ND UNITS OF PRBC'S INFUSING PER ALARUS PUMP @ 75ML/HR. PT DENIES SHORTNESS OF BREATH OR TIGHTNESS IN CHEST. BP REMAINS HYPOTENSIVE 78/31. RATE INCREASED TO 175ML/HR PER ALARUS PUMP. Eliazar VASQUEZ R.N. 1435 REPORT TO Eliazar SCHREIBER R.N.. Eliazar VASQUEZ R.N.
--- NOTE | 2019-11-18 15:15 | NUR ---
PRBC'S TRANSFUSING TO RIGHT WRIST PIV. PATIENT TOLERATING WITHOUT UNTOWARD SYMPTOMS.
--- NOTE | 2019-11-18 16:15 | NUR ---
NO SIGNS OR SYMPTOMS OF TRANSFUSION REACTION, RIGHT WRIST PIV DC'D WITH TIP INTACT. PATIENT WALKS OFF DEPARTMENT WITH DISCHARGE INSTRUCTIONS IN HAND
== END 2019-11-18 16:15 | disposition home or self-care (01) ==
LOC: D.OPS 09:11
PROVIDERS: ATTEND Legal Medicine
DX: D64.9 Anemia, unspecified (principal); I35.0 Nonrheumatic aortic (valve) stenosis

== ENCOUNTER 2019-12-26 09:50 | Outpatient (CLI) | payer MEDICARE ==
[~2019-12-26] VITALS: Ht 154.9 cm; Wt 59.1 kg
[2019-12-26 12:53] VITALS: BP 132/42; Ht 154.9 cm; Wt 59.1 kg
== END 2019-12-26 15:55 | disposition home or self-care (01) ==
LOC: D.OPS 09:50
PROVIDERS: ATTEND Legal Medicine
DX: D58.9 Hereditary hemolytic anemia, unspecified (principal)

== ENCOUNTER 2020-03-04 10:04 | Outpatient (CLI) | payer MEDICARE ==
[~2020-03-04] VITALS: Ht 154.9 cm; Wt 55.0 kg
[2020-03-04 10:53] VITALS: Ht 154.9 cm; Wt 55.0 kg
--- NOTE | 2020-03-04 15:47 | NUR ---
1530 IV REMOVED AND PT INSTRUCTIONS GIVEN.
== END 2020-03-04 15:38 | disposition home or self-care (01) ==
LOC: D.OPS 10:04
PROVIDERS: ATTEND Legal Medicine
DX: D58.9 Hereditary hemolytic anemia, unspecified (principal); I06.0 Rheumatic aortic stenosis

== ENCOUNTER 2020-08-19 10:44 | Outpatient (CLI) | payer MEDICARE ==
[~2020-08-19] VITALS: Ht 154.9 cm; Wt 51.8 kg
[2020-08-19 12:28] VITALS: Ht 154.9 cm; Wt 51.8 kg
--- NOTE | 2020-08-19 17:13 | NUR ---
1705 IV REMOVED AND PRESSURE HELD, INSTRUCTIONS GIVEN.
== END 2020-08-19 17:10 | disposition home or self-care (01) ==
LOC: D.OPS 10:44
PROVIDERS: ATTEND Legal Medicine
DX: D58.9 Hereditary hemolytic anemia, unspecified (principal); I35.0 Nonrheumatic aortic (valve) stenosis

== ENCOUNTER 2020-09-30 10:47 | Day surgery (SDC) | payer MEDICARE ==
[~2020-09-30] VITALS: Ht 154.9 cm; Wt 49.1 kg
[2020-09-30 11:54] VITALS: BP 131/50; Ht 154.9 cm; Wt 49.1 kg
--- NOTE | 2020-09-30 12:19 | NUR ---
HERE FOR OP BLOOD TRANSFUSION. 20 GAUGE IV STARTED IN RIGHT FOREARM X1 ATEMPT. BLOOD STARTED AT 75 ML /HR FOR 15 MINUTES PER INFUSION PUMP
--- NOTE | 2020-09-30 12:30 | NUR ---
TRANSFUSION INCREASED TO 175 ML/HR. INSTRUCTED TO NOTIFY STAFF IMMEDIATELY IF ANY INCREASED SOB, AGREES
--- NOTE | 2020-09-30 14:11 | NUR ---
FIRST UNIT OF BLOOD COMPLETED AT 1400. INFUSION COMPLETED WITHOUT ANY PROBLEMS. 2ND UNIT OF BLOOD INITIATED AT 1405. WILL INFUSE AT 75 ML/HR FOR 15-20 MINUTES.
--- NOTE | 2020-09-30 16:29 | NUR ---
1417 INFUSION INCREASED TO 175 ML/HR. COMPLETED AT 1600. TUBING FLUSHED WITH SALINE 1625 IV CATH REMOVED WITH CATH INTACT. 1630 ESCORTED DOWNSTAIRS (PT REFUSES TO RIDE IN WHEELCHAIR). PT TOLERATED 2 UNITS PRBC WITHOUT PROBLEMS
== END 2020-09-30 16:30 | disposition home or self-care (01) ==
LOC: D.LAB 10:47 → D.OPS 10:47
PROVIDERS: ATTEND Legal Medicine
DX: D58.9 Hereditary hemolytic anemia, unspecified (principal); I35.0 Nonrheumatic aortic (valve) stenosis

== ENCOUNTER 2020-11-03 11:13 | Outpatient (CLI) | payer MEDICARE ==
[~2020-11-03] VITALS: Ht 154.9 cm; Wt 49.1 kg
[2020-11-03 11:42] VITALS: BP 108/45; Ht 154.9 cm; Wt 49.1 kg
--- NOTE | 2020-11-03 16:33 | NUR ---
20 GAUGE IV CATH IN RIGHT FOREARM X 1 PER Willam SOTO RN 1255 IVIG INFUSION STARTED AT 29.4 ML/HR FOR 30 MINUTES. 1310 VS STABLE. PT WITHOUT CO VOICED 1325 RATE INCREASED TO 58.8 ML/HR 1355 RATE INCREASED TO 117.6 ML/HR PER INFUSION PUMP. 1425 RATE INCREASED TO 150 ML/HR. PATIENT CONTINUES WITHOUT CO 1455 RATE REMAINS UNCHANGED. VS STABLE PATIENT RESTING QUIETLY 1600 PATIENT RESTING
--- NOTE | 2020-11-03 16:48 | NUR ---
9893 INFUSION COMPLETED. IV REMOVED WITH CATH INTACT. VS STABLE. OXYGEN SATURATION 90%-PATIENT STATES SHE CURENTLY HAS BRONCHITIS AND HAS INHALER FOR USE IF SHE GETS "WINDED." PATIENT TOLERATED INFUSION WITHOUT ANY PROBLEMS
== END 2020-11-03 17:00 | disposition home or self-care (01) ==
LOC: D.OPS 11:13 → D.MRI 11:13 → D.OPS 17:00
PROVIDERS: ATTEND Clinical Nurse Specialist Family Health
DX: D58.9 Hereditary hemolytic anemia, unspecified (principal); M25.511 Pain in right shoulder

== ENCOUNTER → 2020-11-05 10:47 | Outpatient (CLI) | payer MEDICARE ==
[2020-11-03 11:42] VITALS: BMI 20.4
== END | disposition home or self-care (01) ==
LOC: D.MRI 10:47
PROVIDERS: ATTEND Clinical Nurse Specialist Family Health
DX: M25.511 Pain in right shoulder (principal)

== ENCOUNTER 2020-12-02 11:02 | Outpatient (CLI) | payer MEDICARE ==
[~2020-12-02] VITALS: Ht 154.9 cm; Wt 51.8 kg
[2020-12-02 12:51] VITALS: BP 142/71; Ht 154.9 cm; Wt 51.8 kg
--- NOTE | 2020-12-02 16:54 | NUR ---
RECIEVED TWO UNITS PRBC'S TODAY. TOLERATED WELL. IV REMOVED WITH CATHALON INTACT. ALL DISCHARGE INSTRUCTIONS GIVEN. VOICES UNDERSTANDING. NO OTHER NEEDS VOICED. AMBULATED DOWN TO DRIVE SELF HOME. ADVISED TO CALL OR COME BACK IF ANY PROBLEMS.
== END 2020-12-02 16:55 | disposition home or self-care (01) ==
LOC: D.OPS 11:02
PROVIDERS: ATTEND Legal Medicine
DX: D58.9 Hereditary hemolytic anemia, unspecified (principal); I35.0 Nonrheumatic aortic (valve) stenosis